=== PATIENT | female | born 1990 | race Caucasian/White ===

== ENCOUNTER 2016-12-27 20:34 | Outpatient (CLI) | payer BC, MEDICAID ==
[2016-12-27 21:36] VITALS: BP 122/69
--- NOTE | 2016-12-27 21:56 | ER Document Report ---
ED Medical Screen (RME) - General Stated Complaint: LEFT SIDE BACK PAIN Mode of Arrival: Ambulatory Information source: Patient Notes: Patient complains of left lateral side lower quadrant abdominal pain. Patient states she is currently 25 weeks . Patient is . Patient states she has gestational diabetes. Patient denies urinary symptoms. Pt denies any vag bleeding or discharge. hx: Kidney stones without formal diagnosis of kidney stone TRAVEL OUTSIDE OF THE [place] IN LAST 30 DAYS: No - Related Data Allergies/Adverse Reactions: Penicillins Allergy (Verified 08/20/16 11:15) Generalized Itching Past Medical History - Past Medical History Cardiac Medical History: Denies: Hx Coronary Artery Disease, Hx Heart Attack, Hx Hypertension Pulmonary Medical History: Denies: Hx Asthma, Hx Bronchitis, Hx COPD, Hx Pneumonia Neurological Medical History: Denies: Hx Cerebrovascular Accident, Hx Seizures Endocrine Medical History: Reports: Hx Diabetes Mellitus Type 2 - gestational. Denies: Hx Hyperthyroidism, Hx Hypothyroidism Renal/ Medical History: Reports: Hx Kidney Stones. Denies: Hx Ovarian Cysts, Hx Pelvic Inflammatory Disease Malignancy Medical History: Denies: Hx Breast Cancer, Hx Cervical Cancer, Hx Ovarian Cancer GI Medical History: Denies: Hx Gastroesophageal Reflux Disease, Hx Hepatitis, Hx Hiatal Hernia, Hx Ulcer Musculoskeltal Medical History: Denies Hx Arthritis Traumatic Medical History: Reports: Hx Fractures - Fx Tailbone 12/25 Infectious Medical History: Denies: Hx Hepatitis, Hx HIV Past Surgical History: Reports: Hx Section, Hx Gynecologic Surgery - lap for endometriosis/ d&c, Hx Orthopedic Surgery - bilateral knee surgery, right shoulder x2. Denies: Hx Mastectomy, Hx Open Heart Surgery, Hx Pacemaker - Immunizations Immunizations up to date: Yes Hx Diphtheria, Pertussis, Tetanus Vaccination: Yes - 10/14/13 Physical Exam - Vital signs Vitals: Temp Pulse Resp BP 97.8 F 113 H 22 H 122/69 12/27/16 21:34 12/27/16 21:34 12/27/16 21:34 12/27/16 21:34 - Abdominal Tenderness: Tender - left lower quadrant and the left lateral side Course - Re-evaluation Re-evalutation: 12/27/16 21:59 Patient is currently 25 weeks and will be converted to a labor check, patient is agreeable with this plan of care. - Vital Signs Vital signs: Temp Pulse Resp BP Pulse Ox 97.8 F 113 H 22 H 122/69 12/27/16 21:34 12/27/16 21:34 12/27/16 21:34 12/27/16 21:34
--- NOTE | 2016-12-27 22:17 | Non Stress Test Report ---
Non Stress Test Datetime Report Generated by CPN: 12/27/2016 22:16 DEMOGRAPHIC EGA NST: 38.5 EGA NST: 38.4 EGA NST: 32.0 INDICATION Indication for Study: Ordered by Provider; Other Indication for Study: Other Indication for Study: Ordered by Provider Indication for Study (NST) Other: labor check Indication for Study (NST) Other: Labor Check Indication for Study (NST) Other: Labor Check MONITORING Monitor Explained: Monitor Explained; Test Explained; Patient Verbalized Understanding Monitor Explained: Monitor Explained; Test Explained; Patient Verbalized Understanding Monitor Explained: Monitor Explained; Test Explained; Patient Verbalized Understanding Time on Monitor: 04/04/2016 03:24 Time on Monitor: 04/03/2016 07:45 Time on Monitor: 02/17/2016 11:50 Time off Monitor: 04/04/2016 04:32 Time off Monitor: 04/03/2016 08:30 Time off Monitor: 02/17/2016 12:44 NST Duration: 68 NST Duration: 45 NST Duration: 54 NST INTERVENTIONS NST Interventions: PO Hydration NST Interventions: None NST Interventions: PO Hydration Physician Notified NST: Dr Pizarro Physician Notified NST: Dr. Pizarro Physician Notified NST: Dr. Ron MACIAS A: [id number] BABY A Movement : Present Movement : Present Movement : Present Contraction Frequency : irregular Contraction Frequency : Irregular Contraction Frequency : 0 FHR Baseline : 140 FHR Baseline : 145 FHR Baseline : 135 Accelerations : 15X15 Accelerations : 15X15 Accelerations : 15X15 Decelerations : None Decelerations : None Decelerations : None Variability : Moderate 6-25bpm Variability : Moderate 6-25bpm Variability : Moderate 6-25bpm NST Review: Meets Criteria for Reactive NST NST Review: Meets Criteria for Reactive NST NST Review: Meets Criteria for Reactive NST NST Review and Verified By : Yumiko Martinez RN NST Review and Verified By : Ricardo Allen RN NST Results: Reactive NST Results: Reactive NST Results: Reactive NST REPORT Report Trigger: Send Report Report Trigger: Send Report
[2016-12-27 22:39] LABS: APPEARANCE,URINE SLIGHTLY-CLOUDY; BILIRUBIN,URINE NEGATIVE (NEGATIVE); GLUCOSE, URINE NEGATIVE (NEGATIVE); KETONES,URINE NEGATIVE (NEGATIVE); LEUKOCYTE ESTERASE,URINE TRACE (NEGATIVE); NITRITE,URINE NEGATIVE (NEGATIVE); PROTEIN,URINE NEGATIVE (NEGATIVE); URINE SPECIFIC GRAVITY 1.017; UROBILINOGEN,URINE NEGATIVE mg/dL (<2.0)
[2016-12-27 22:52] LABS: URINE BARBITURATES SCREEN NEGATIVE; URINE METHADONE SCREEN NEGATIVE; URINE PHENCYCLIDINE SCREEN NEGATIVE
[2016-12-27 22:59] LABS: URINE OPIATES LOW UNCONFIRMED POSITIVE
[2016-12-27] MEDS ORDERED: IBUPROFEN 800 MG TABLET ONE (23:02)
[2016-12-27] MEDS ORDERED: PROMETHAZINE HCL 25 MG TABLET ONE (23:02)
--- NOTE | 2016-12-27 23:15 | L&D Progress Notes ---
PROGRESS NOTES Datetime Report Generated by CPN: 12/27/2016 23:15 PROGRESS NOTE Impression Other: llq pain like kidney stones in past Comment: no cva tenderness. Pt denies fevers, chills, constipation. Abd Gravid. Suspected kidney stone-phenergan 25 mg and motrin 800 mg po now. Script for vicodin 5/325 1-2 po qid prn #30 rfo. Push fluids and f/u if sxs persist or worsen. FETUS A FHR Comments: appropriate for gestational age SIGNATURE SIGNATURE: [id number] SIGNATURE: [id number] Signature: with User ID: [email or web address]
[2016-12-27] MEDS ORDERED: HYDROCODONE/ACETAMINOPHEN 5-325 MG TABLET PO ONE (23:16)
[2016-12-27] MEDS ORDERED: IBUPROFEN 800 MG TABLET PO ONE (23:16)
[2016-12-27] MEDS ORDERED: HYDROCODONE/ACETAMINOPHEN 5-325 MG TABLET ONE (23:16)
[2016-12-27] MEDS ORDERED: PROMETHAZINE HCL 25 MG TABLET PO ONE (23:16)
== END 2016-12-27 23:17 | disposition home or self-care (01) ==
LOC: EDSTATUS 22:02 → LC 22:04
PROVIDERS: ATTEND Specialist
PROC: 4A1HXCZ Monitoring of Products of Conception, Cardiac Rate, External Approach (ICD-10-PCS; principal; 2016-12-27)
DX: O26.893 Other specified pregnancy related conditions, third trimester (principal); R10.32 Left lower quadrant pain; Z87.442 Personal history of urinary calculi; Z3A.38 38 weeks gestation of pregnancy
CPT/HCPCS: 59025; 81001; 80307; J3490 ×2

== ENCOUNTER 2017-01-11 09:52 | Emergency (ER) | payer MEDICAID ==
[2017-01-11] MEDS ORDERED: NORMAL SALINE 1000 ML 1,000 ML IV ONE (10:22)
--- NOTE | 2017-01-11 10:30 | ER Document Report ---
ED General - General Chief Complaint: Flank Pain Stated Complaint: FLANK PAIN Mode of Arrival: Ambulatory Information source: Patient Notes: This is a 26-year-old female at 27 weeks gestation who presents with 3 week history of left flank pain. She states that she has a history of kidney stones and that this feels the same. She has been treated with Flomax and hydrocodone by her OB physician yet she ran out a few days ago. This morning the pain persisted so she presented to the emergency department. Of note she has OB follow-up scheduled for tomorrow and urology appointment scheduled for January 21. She denies fevers, chills or systemic symptoms. She does endorse mild dysuria. She is tolerating by mouth without difficulty. TRAVEL OUTSIDE OF THE [place] IN LAST 30 DAYS: No - Related Data Allergies/Adverse Reactions: Penicillins Allergy (Verified 01/11/17 09:55) Generalized Itching Past Medical History - General Information source: Patient, [facility] Records - Social History Smoking Status: Unknown if Ever Smoked Chew tobacco use (# tins/day): No Frequency of alcohol use: None Drug Abuse: None Family History: Reviewed & Not Pertinent Patient has suicidal ideation: No Patient has homicidal ideation: No - Past Medical History Cardiac Medical History: Denies: Hx Coronary Artery Disease, Hx Heart Attack, Hx Hypertension Pulmonary Medical History: Denies: Hx Asthma, Hx Bronchitis, Hx COPD, Hx Pneumonia Neurological Medical History: Denies: Hx Cerebrovascular Accident, Hx Seizures Endocrine Medical History: Reports: Hx Diabetes Mellitus Type 2 - gestational. Denies: Hx Hyperthyroidism, Hx Hypothyroidism Renal/ Medical History: Reports: Hx Kidney Stones. Denies: Hx Ovarian Cysts, Hx Peritoneal Dialysis, Hx Pelvic Inflammatory Disease Malignancy Medical History: Denies: Hx Breast Cancer, Hx Cervical Cancer, Hx Ovarian Cancer GI Medical History: Denies: Hx Gastroesophageal Reflux Disease, Hx Hepatitis, Hx Hiatal Hernia, Hx Ulcer Musculoskeltal Medical History: Denies Hx Arthritis Traumatic Medical History: Reports: Hx Fractures - Fx Tailbone 12/25 Infectious Medical History: Denies: Hx Hepatitis, Hx HIV Past Surgical History: Reports: Hx Section, Hx Gynecologic Surgery - lap for endometriosis/ d&c, Hx Orthopedic Surgery - bilateral knee surgery, right shoulder x2. Denies: Hx Mastectomy, Hx Open Heart Surgery, Hx Pacemaker - Immunizations Immunizations up to date: Yes Hx Diphtheria, Pertussis, Tetanus Vaccination: Yes - 10/14/13 Review of Systems - Review of Systems Notes: REVIEW OF SYSTEMS: CONSTITUTIONAL : Denies fever, chills, or sweats. Denies recent illness. EENT: Denies eye, ear, throat, or mouth pain or symptoms. Denies nasal or sinus congestion. CARDIOVASCULAR: Denies chest pain. RESPIRATORY: Denies cough, cold, or chest congestion. Denies shortness of breath, difficulty breathing, or wheezing. GASTROINTESTINAL: Denies abdominal pain, contractions. Denies nausea, vomiting , or diarrhea. GENITOURINARY: As per history of present illness. Denies difficulty urinating , burning, frequency, or blood in urine. FEMALE GENITOURINARY: Denies vaginal bleeding MUSCULOSKELETAL: Denies neck or back pain or joint pain or swelling. SKIN: Denies rash or skin lesions. HEMATOLOGIC : Denies easy bruising or bleeding. LYMPHATIC: Denies swollen, enlarged glands. NEUROLOGICAL: Denies altered mental status or loss of consciousness. Denies headache. PSYCHIATRIC: Denies anxiety or stress or depression. ALL OTHER SYSTEMS REVIEWED AND NEGATIVE. Physical Exam - Vital signs Vitals: Temp Pulse Resp BP Pulse Ox 98.1 F 112 H 18 134/62 H 99 01/11/17 09:56 01/11/17 09:56 01/11/17 09:56 01/11/17 09:56 01/11/17 09:56 heart tones 145 - Notes Notes: PHYSICAL EXAMINATION: GENERAL: Well-appearing, well-nourished and in no acute distress. Pleasant and conversant HEAD: Atraumatic, normocephalic. EYES: Pupils equal round and reactive to light, extraocular movements intact, sclera anicteric, conjunctiva are normal. ENT: nares patent, oropharynx clear without exudates. Moist mucous membranes. NECK: Normal range of motion, supple without lymphadenopathy LUNGS: Breath sounds clear to auscultation bilaterally and equal. No wheezes rales or rhonchi. HEART: Regular rate and rhythm without murmurs ABDOMEN: Soft, gravid, nontender, normoactive bowel sounds. No guarding, no rebound. No masses appreciated. EXTREMITIES: Normal range of motion, no pitting or edema. No cyanosis. NEUROLOGICAL: Cranial nerves grossly intact. Normal speech. No gross focal motor or sensory deficits appreciated. PSYCH: Normal mood, normal affect. SKIN: Warm, Dry, normal turgor, no rashes or lesions noted. Course - Re-evaluation Re-evalutation: 01/11/17 11:58 Patient resting comfortably in the ER with no complaints of pain at this time. Her labs and ultrasound are reviewed. Labs are very reassuring with normal kidney function and electrolytes. Renal ultrasound demonstrates no evidence of hydronephrosis. Her urinalysis is somewhat of a contaminated sample however with moderate leukocyte Estrace and the patient state stating that she does have mild discomfort with urination will treat with Macrobid. Patient has plans to follow up with her [facility] provider this week. We discussed strict return precautions to include fevers, persistent vomiting, vaginal bleeding or other concerns. She and her family are comfortable with the plan. - Vital Signs Vital signs: Temp Pulse Resp BP Pulse Ox 98.1 F 112 H 18 134/62 H 99 01/11/17 09:56 01/11/17 09:56 01/11/17 09:56 01/11/17 09:56 01/11/17 09:56 - Laboratory Result Diagrams: 01/11/17 10:40 01/11/17 10:40 Laboratory results interpreted by me: 01/11/17 01/11/17 01/11/17 10:40 10:40 10:40 Hgb 10.6 L Hct 31.2 L BUN 6 L Albumin 3.3 L Urine Protein 30 H Urine Blood SMALL H Ur Leukocyte Esterase MODERATE H - Diagnostic Test Radiology reviewed: Image reviewed, Reports reviewed - no hydronephrosis Discharge - Discharge Clinical Impression: Renal colic on left side, Third trimester UTI (urinary tract infection) Qualifiers: Urinary tract infection type: site unspecified Hematuria presence: without hematuria Qualified Code(s): N39.0 - Urinary tract infection, site not specified Condition: Stable Disposition: HOME, SELF-CARE Additional Instructions: URINARY TRACT INFECTION: Your evaluation indicates that you have a urinary tract infection. This is due to germs growing in the bladder. This is a common problem. This infection usually responds quickly to antibiotics. Your antibiotic should be taken exactly as prescribed. Drink plenty of fluids -- three to four quarts a day. Occasionally, a bladder anesthetic will be prescribed to help stop the feeling of urgency until the antibiotic has a chance to clear the infection. This may cause your urine to be dark orange. Certain urine infections require a culture. If the doctor obtained a culture, the results will be back in two days. You should call to see if a change in treatment is needed. A repeat urinalysis after you finish treatment is often recommended. The physician will let you know if further testing is required. Call the doctor if you develop fever, chills, flank pain, inability to urinate, or blood in the urine. ANTIBIOTIC THERAPY: You have been given an antibiotic prescription. It's important that you take all the medication, unless instructed otherwise by your physician. Failure to complete the entire course can result in relapse of your condition. Common side effects of antibiotics include nausea, intestinal cramping, or diarrhea. Women may develop vaginal yeast infections, and babies can get yeast (thrush) in the mouth following the use of antibiotics. Contact your physician if you develop significant side effects from this medication. Allergy to this antibiotic can result in hives, wheezing, faintness, or itching. If symptoms of allergy occur, stop the medication and call the doctor. . NITROFURANTOIN (MACRODANTIN, MACROBID): You have received a prescription for nitrofurantoin (Macrodantin). This antibiotic is used for urinary tract infections. If you have ever had a problem caused by this medication in the past, be sure the physician is aware of it. Common side effects of this medicine include nausea, vomiting, or decreased appetite. Notify your physician if these side effects become severe. Immediately stop this medicine and call the physician if you develop cough , shortness of breath, chest pain, weakness, jaundice (yellow color of the skin and whites of the eyes), or a skin rash. FOLLOW-UP CARE: If you have been referred to a physician for follow-up care, call the physician s office for an appointment as you were instructed or within the next two days. If you experience worsening or a significant change in your symptoms, notify the physician immediately or return to the Emergency Department at any time for re-evaluation. Continue Tylenol as needed as instructed for pain. Follow up with OB as instructed on Thursday, and keep follow up with urology on 01/21 as scheduled. Return to the ER for fever >100.4, vaginal bleeding, persistant vomiting, or any worsening symptoms or concerns. Prescriptions: Nitrofurantoin/Nitrofuran Mac [Macrobid 100 mg Capsule] 1 tab PO BID #20 capsule Referrals: MAVIS CASTRO MD [Primary Care Provider] - Follow up as needed
[2017-01-11 11:05] LABS: ABSOLUTE EOSINOPHILS # (AUTO) 0.1 10^3/uL (0.0-0.6); ABSOLUTE LYMPHOCYTES (AUTO) 1.6 10^3/uL (0.5-4.7); ABSOLUTE MONOCYTES (AUTO) 0.4 10^3/uL (0.1-1.4); ABSOLUTE NEUT (AUTO) 6.2 10^3/uL (1.7-8.2); BASOPHILS % (AUTO) 0.3 % (0-2); EOSINOPHILS % (AUTO) 0.7 % (0-6); HEMATOCRIT 31.2 % (36.0-47.0); HEMOGLOBIN 10.6 g/dL (12.0-15.5); HGB HCT DIFFERENCE 0.6; LYMPHOCYTES % (AUTO) 19.5 % (13-45); MEAN CORPUSCULAR HEMOGLOBIN 28.2 pg (27.0-33.4); MEAN CORPUSCULAR HGB CONC 34.1 g/dL (32.0-36.0); MEAN CORPUSCULAR VOLUME 83 fl (80-97); RED BLOOD COUNT 3.78 10^6/uL (3.72-5.28); RED CELL DISTRIBUTION WIDTH 13.8 % (11.5-14.0); SEGMENTED NEUTROPHILS % (AUTO) 74.5 % (42-78); WHITE BLOOD COUNT 8.4 10^3/uL (4.0-10.5)
[2017-01-11 11:25] LABS: APPEARANCE,URINE CLOUDY; BILIRUBIN,URINE NEGATIVE (NEGATIVE); GLUCOSE, URINE NEGATIVE (NEGATIVE); KETONES,URINE NEGATIVE (NEGATIVE); LEUKOCYTE ESTERASE,URINE MODERATE (NEGATIVE); NITRITE,URINE NEGATIVE (NEGATIVE); PROTEIN,URINE 30 mg/dL (NEGATIVE); URINE SPECIFIC GRAVITY 1.023; UROBILINOGEN,URINE NEGATIVE mg/dL (<2.0)
[2017-01-11 11:26] LABS: ALANINE AMINOTRANSFERASE 18 U/L (9-52); ALBUMIN 3.3 g/dL (3.5-5.0); ALKALINE PHOSPHATASE 101 U/L (38-126); ANION GAP 10 (5-19); ASPARTATE AMINO TRANSFERASE 15 U/L (14-36); BILIRUBIN,TOTAL 0.3 mg/dL (0.2-1.3); BLOOD UREA NITROGEN 6 mg/dL (7-20); CALCIUM 9.1 mg/dL (8.4-10.2); CARBON DIOXIDE 22 mmol/L (22-30); CHLORIDE 107 mmol/L (98-107); CREATININE RESULT 0.59 mg/dL (0.52-1.25); GLUCOSE 104 mg/dL (75-110); POTASSIUM 3.9 mmol/L (3.6-5.0); TOTAL PROTEIN 6.3 g/dL (6.3-8.2)
[2017-01-11 12:14] VITALS: BP 118/65
== END 2017-01-11 12:16 | disposition home or self-care (01) ==
LOC: ER 09:52
DX: O23.43 Unspecified infection of urinary tract in pregnancy, third trimester (principal); N23 Unspecified renal colic; R10.9 Unspecified abdominal pain; Z3A.27 27 weeks gestation of pregnancy; Z79.899 Other long term (current) drug therapy
CPT/HCPCS: 99284; 36415; 85025; 80053; 81001; 76770; J7030

== ENCOUNTER 2017-02-18 14:45 | Outpatient (CLI) | payer MEDICAID ==
[2017-02-18 15:56] LABS: APPEARANCE,URINE SLIGHTLY-CLOUDY; BILIRUBIN,URINE NEGATIVE (NEGATIVE); GLUCOSE, URINE NEGATIVE (NEGATIVE); KETONES,URINE NEGATIVE (NEGATIVE); LEUKOCYTE ESTERASE,URINE TRACE (NEGATIVE); NITRITE,URINE NEGATIVE (NEGATIVE); PROTEIN,URINE NEGATIVE (NEGATIVE); URINE SPECIFIC GRAVITY 1.014; UROBILINOGEN,URINE NEGATIVE mg/dL (<2.0)
[2017-02-18 16:09] LABS: URINE BARBITURATES SCREEN NEGATIVE; URINE METHADONE SCREEN NEGATIVE; URINE PHENCYCLIDINE SCREEN NEGATIVE
[2017-02-18 16:14] LABS: URINE OPIATES LOW UNCONFIRMED POSITIVE
--- NOTE | 2017-02-18 16:50 | Non Stress Test Report ---
Non Stress Test Datetime Report Generated by CPN: 02/18/2017 16:49 DEMOGRAPHIC EGA NST: 32.2 INDICATION Indication for Study: Other Indication for Study (NST) Other: sent from office for IV fluids MONITORING Monitor Explained: Monitor Explained; Test Explained; Patient Verbalized Understanding Time on Monitor: 02/18/2017 15:13 Time off Monitor: 02/18/2017 15:39 NST Duration: 26 NST INTERVENTIONS NST Interventions: IV Fluids Physician Notified NST: A. Emmel, CNM BABY A: [id number] BABY A Movement : Present Movement : Present Contraction Frequency : none FHR Baseline : 125 Accelerations : 15X15 Decelerations : None Variability : Moderate 6-25bpm NST Review: Meets Criteria for Reactive NST NST Review and Verified By : Napoleon Dominguez [facility] NST Results: Reactive NST Results: Reactive NST REPORT Report Trigger: Send Report
--- NOTE | 2017-02-18 18:53 | L&D Discharge Summary ---
OB Discharge Summary Datetime Report Generated by CPN: 02/18/2017 18:53 DISCHARGE DIAGNOSIS Diagnosis/Symptoms: Other Diagnoses/Symptoms Other: IUP at 32.2, not in labor Gestation: 32.1 Number of Babies in Womb: 1 Parity: 2 DIET/ACTIVITY/RESTRICTIONS Diet: Regular Diet Restrictions: Instructed to advance as tolerated Activity: Normal Activity TEACHING/INSTRUCTIONS/REFERRALS Instructions Given To: patient Instructions Understood: Patient Verbalized Understanding Referrals: None Educational Materials- Other: kick counts, dehydration DISCHARGE INFORMATION Discharged AMA: No Discharge Date/Time: 02/18/2017 16:44 Discharged To: Home Discharge Provider Name: Di PetersJACQUI Accompanied By: self Discharge Method: Ambulatory Condition: Stable FOLLOW UP INFORMATION Follow Up With: [facility] Follow Up On: As Scheduled Follow Up Phone Number: [facility] - Comments: Patient instructed to return for ctx every 5 min lasting 60 seconds, decreased movement, ruptur eof membranes, heavy vaginal bleeding GENERAL INSTR-CALL PROVIDER IF: Contractions: Contractions or cramps become more frequent than 8 in one hour or 4 in 20 minutes; Regular painful contractions every 5 minutes or less for one hour. Time your contractions from the beginning of one to the beginning of the next Pressure: Pressure in your vagina or lower abdomen that may feel like the baby is pushing down Period Like Cramps: Period-like cramps or low dull backache that may come and go Cramps/Diarrhea: Abdominal cramps that may be accompanied by diarrhea Gush of Fluid/Blood: Gush of fluid or blood from your vagina (it is normal to have spotting after vaginal exam or intercourse) Vaginal Discharge: Change in the type or amount of vaginal discharge Decreased Movement: Your baby is not moving as much as usual- 4 movements in 1 hour after drinking and resting on side Temperature: Temperature greater than 100.0(F) orally
--- NOTE | 2017-02-18 22:46 | L&D Discharge Summary ---
OB Discharge Summary Datetime Report Generated by CPN: 02/18/2017 22:45 DISCHARGE DIAGNOSIS Diagnosis/Symptoms: Other Diagnoses/Symptoms Other: IUP at 32.2, not in labor Gestation: 32.2 Number of Babies in Womb: 1 Parity: 2 DIET/ACTIVITY/RESTRICTIONS Diet: Regular Diet Restrictions: Instructed to advance as tolerated Activity: Normal Activity TEACHING/INSTRUCTIONS/REFERRALS Instructions Given To: patient Instructions Understood: Patient Verbalized Understanding Referrals: None Educational Materials- Other: kick counts, dehydration DISCHARGE INFORMATION Discharged AMA: No Discharge Date/Time: 02/18/2017 16:44 Discharged To: Home Discharge Provider Name: Di PetersJAQCUI Accompanied By: self Discharge Method: Ambulatory Condition: Stable FOLLOW UP INFORMATION Follow Up With: [facility] Follow Up On: As Scheduled Follow Up Phone Number: [facility] - Comments: Patient instructed to return for ctx every 5 min lasting 60 seconds, decreased movement, ruptur eof membranes, heavy vaginal bleeding GENERAL INSTR-CALL PROVIDER IF: Contractions: Contractions or cramps become more frequent than 8 in one hour or 4 in 20 minutes; Regular painful contractions every 5 minutes or less for one hour. Time your contractions from the beginning of one to the beginning of the next Pressure: Pressure in your vagina or lower abdomen that may feel like the baby is pushing down Period Like Cramps: Period-like cramps or low dull backache that may come and go Cramps/Diarrhea: Abdominal cramps that may be accompanied by diarrhea Gush of Fluid/Blood: Gush of fluid or blood from your vagina (it is normal to have spotting after vaginal exam or intercourse) Vaginal Discharge: Change in the type or amount of vaginal discharge Decreased Movement: Your baby is not moving as much as usual- 4 movements in 1 hour after drinking and resting on side Temperature: Temperature greater than 100.0(F) orally
--- NOTE | 2017-02-18 22:46 | L&D Flow Sheet ---
LD Flowsheet Datetime Report Generated by CPN: 02/18/2017 22:45 Datetime: 02/18/2017 16:35 Communication Comments: kick counts and dehydration care notes given to patient, patient verbalized understanding. Patient instructed to keep appointment at office on the 20 th (Elizabeth Russo RN) Communication Comments: monitors removed for patient discharge (Elizabeth Russo, RN) Datetime: 02/18/2017 16:34 Patient Care Comments: IV discontinued (Elizabeth Russo, RN) Datetime: 02/18/2017 16:32 Communication Communication: Provider at Bedside (Elizabeth Karan, RN) Communication Comments: A. Emmel, CNM at bedside discussing POC, order received to discharge patient home (Elizabeth Karan, RN) Datetime: 02/18/2017 16:24 Vital Signs NBP Sys/Sarba/Mean (mmHg): 107 (QS system process) : 59 (QS system process) : 76 (QS system process) Pulse: 89 (QS system process) LaborFlag: Labor (QS system process) Datetime: 02/18/2017 16:09 Vital Signs NBP Sys/Sabra/Mean (mmHg): 105 (QS system process) : 58 (QS system process) : 78 (QS system process) Pulse: 96 (QS system process) LaborFlag: Labor (QS system process) Datetime: 02/18/2017 15:54 Vital Signs NBP Sys/Sabra/Mean (mmHg): 109 (QS system process) : 57 (QS system process) : 79 (QS system process) Pulse: 96 (QS system process) LaborFlag: Labor (QS system process) Datetime: 02/18/2017 15:39 Vital Signs NBP Sys/Sabra/Mean (mmHg): 110 (QS system process) : 56 (QS system process) : 76 (QS system process) Pulse: 92 (QS system process) LaborFlag: Labor (QS system process) Datetime: 02/18/2017 15:38 Communication Comments: strip reviewed by A. Emmel, CNM. Order receieved to discontinue heart rate monitor (Elizabeth Karan, RN) Datetime: 02/18/2017 15:30 Uterine Activity Monitor Mode: External; Palpation (Elizabeth Karan, RN) Frequency (min): none (Elizabeth Karan, RN) Resting Tone (Palpate): Relaxed (Elizabeth Karan, RN) Assessment A Monitor Mode: External US (Elizabeth Karan, RN) FHR Baseline Rate : 140 (Elizabeth Karan, RN) FHR Baseline Changes: No Baseline Change (Elizabeth Karan, RN) Variability: Moderate 6-25 bpm (Elizabeth Karan, RN) Accelerations: 15X15 (Elizabeth Karan, RN) Decelerations: None (Elizabeth Karan, RN) Datetime: 02/18/2017 15:25 Resting Tone (Palpate): Relaxed (Elizabeth Karan, RN) Assessment A Monitor Mode: External US (Elizabeth Karan, RN) Pain Pain Scale: 1 (Elizabeth Russo, RN) Pain Presence: None/Denies (Elizabeth Russo, RN) Pain Type: N/A (Elizabeth Russo, RN) Pain Goal: 0 (Elizabeth Russo, RN) Pain Relief Measures: Comfort Measures (Elizabeth Russo, RN) Vaginal Exam Membrane Status: Intact (Annotations: intact per patient) (Elizabeth Russo, RN) Vaginal Bleeding: None (Elizabeth Russo, RN) Maternal Assessment Level of Consciousness: Fully Conscious (Elizabeth Russo, ELLEN) DTR's/Clonus: DTRs 2+; No Clonus (Elizabeth Russo, ELLEN) Headache: Denies (Elizabeth Russo, RN) Breath Sounds, Left: Clear and Equal (Elizabeth Russo, RN) Breath Sounds, Right: Clear and Equal (Elizabeth Russo, RN) Nausea/Vomiting: Denies (Elizabeth Russo, ELLEN) RUQ Epigastric Pain: Denies (Elizabeth Russo, RN) Patient Care IV/Blood Work: IV Infusing per Order (Elizabeth Russo, ELLEN) Oxygen Method: Room Air (Elizabeth Russo RN) Patient Position/Activity: Left Tilt; Semi-Fowlers (Elizabeth Russo RN) Provider Reviewed Strip: Yes (Elizabeth Russo RN) Teaching Instructional Method: Verbal (Elizabeth Russo, RN) Plan of Care: Plan of Care Discussed (Elizabeth Karan, RN) Unit Routine: [place] to Room; Call [place]; Bed (Elizabeth Karan, RN) LaborFlag: Labor (QS system process) Datetime: 02/18/2017 15:23 Vital Signs NBP Sys/Sabra/Mean (mmHg): 116 (QS system process) : 60 (QS system process) : 81 (QS system process) Pulse: 93 (QS system process) Patient Care IV/Blood Work: IV Started; IV Bolus Started (Elizabeth Karan, RN) LaborFlag: Labor (QS system process) Datetime: 12/27/2016 22:42 LaborFlag: Labor (QS system process) Datetime: 12/27/2016 22:41 Temperature (C): 36.9 (QS system process) LaborFlag: Labor (QS system process) Datetime: 12/27/2016 22:32 LaborFlag: Labor (QS system process) Datetime: 02/25/2016 11:43 Temperature (C): 36.6 (QS system process)
--- NOTE | 2017-02-18 22:46 | L&D General Admission ---
General Admit Datetime Report Generated by CPN: 02/18/2017 22:45 INFORMATION Patient Age: 24 (09/20/2014 12:44:QS system process) EDC: 04/13/2017 00:00 (12/24/2015 16:17:Katrina Briggs RN) : 6 (12/24/2015 16:17:Katrina Briggs RN) Para: 2 (12/24/2015 16:17:Katrina Briggs RN) Term: 2 (12/24/2015 16:17:Katrina Briggs RN) : 0 (12/24/2015 16:17:Sugey Henderson RN ) Spontaneous Abortions: 3 (12/24/2015 16:17:Sugey Henderson RN ) Induced Abortions: 0 (12/24/2015 16:17:Sugey Henderson RN ) Livin (12/24/2015 16:17:Katrina Briggs RN) Cesareans: 1 (12/24/2015 16:17:Sugey Henderson RN ) VBACs: 0 (12/24/2015 16:17:Sugey Henderson RN ) Ectopic: 0 (12/24/2015 16:17:Sugey Henderson RN ) Multiple Births: 0 (12/24/2015 16:17:Sugey Henderson RN ) Baby, Number in Womb: 1 (12/27/2016 23:17:Katrina Briggs RN) Baby, Number in Womb: 1 (12/24/2015 16:17:Sugey Henderson RN ) CARE Primary Net Development Manager: [facility] (12/24/2015 16:17:Jerilyn Arevalo RN) Adequate Care: Yes (12/24/2015 16:17:Sugey Henderson RN ) Height (in): 67 (02/18/2017 15:35:QS system process) Height (in): 67 (02/18/2017 15:34:QS system process) Height (in): 67 (12/27/2016 22:45:QS system process) Height (in): 67 (12/27/2016 22:12:QS system process) Height (in): 67 (12/27/2016 22:11:QS system process) Height (in): 67 (12/27/2016 22:05:QS system process) Height (in): 67 (04/10/2016 10:10:QS system process) Height (in): 67 (04/09/2016 11:09:QS system process) Height (in): 67 (04/08/2016 05:35:QS system process) Height (in): 67 (04/08/2016 05:02:QS system process) Height (in): 67 (04/04/2016 03:26:QS system process) Height (in): 67 (04/03/2016 07:14:QS system process) Height (in): 67 (02/25/2016 11:19:QS system process) Height (in): 67 (12/24/2015 16:23:QS system process) Height (in): 67 (12/24/2015 15:59:QS system process) Height (in): 67 (12/24/2015 15:58:QS system process) Height (in): 67 (07/18/2015 19:11:QS system process) Height (in): 67 (01/26/2015 14:13:QS system process) Height (in): 67 (09/27/2014 22:43:QS system process) Height (in): 67 (09/27/2014 22:12:QS system process) Height (in): 67 (09/20/2014 12:44:QS system process) ALLERGIES Medication Allergy: Yes (12/24/2015 16:17:Sugey Henderson RN ) Medication Allergies: Penicillins/Generalized Itc (02/18/2017) (02/18/2017 15:34:QS system process) Medication Allergies: Penicillins/Generalized Itc (01/11/2017) (02/18/2017 14:46:QS system process) Medication Allergies: Penicillins/Generalized Itc (12/27/2016) (12/27/2016 22:45:QS system process) Medication Allergies: Penicillins/Generalized Itc (08/20/2016) (12/27/2016 22:05:QS system process) Medication Allergies: Penicillins/Generalized Itc (04/04/2016) (04/08/2016 05:02:QS system process) Medication Allergies: Penicillins/Generalized Itc (04/04/2016); codeine/Generalized Itc (04/04/2016) (04/04/2016 03:22:QS system process) Medication Allergies: Penicillins/Generalized Itc (02/25/2016); Codeine/Generalized Itc (02/25/2016) (02/25/2016 11:19:QS system process) Medication Allergies: Penicillins/Generalized Itc (02/21/2016); Codeine/Generalized Itc (02/21/2016) (02/25/2016 11:05:QS system process) Medication Allergies: Penicillins/Generalized Itc (12/24/2015); Codeine/Generalized Itc (12/24/2015) (12/24/2015 15:58:QS system process) Medication Allergies: Penicillins/Generalized Itc (01/02/2014); Codeine/Generalized Itc (01/02/2014) (09/20/2014 12:44:QS system process) Latex Allergy: No Latex Allergies (12/24/2015 16:17:Sugey Henderson RN ) COMMUNICATION Primary Language: Citizen [place] (12/24/2015 16:17:Sugey Henderson RN ) Medical Tx Preferred Language: Citizen [place] (12/24/2015 16:17:Yara Uribe RN) Citizen [place] Communication Ability: Speaks Citizen [place]; Reads Citizen [place] (12/24/2015 16:17:Elizabeth Munoz RN) Communication Barrier(s): None (12/24/2015 16:17:Yara Uribe RN) DEMOGRAPHICS Address: [address] [place] [phone] (09/20/2014 12:44:QS system process) Zipcode: [phone] (09/20/2014 12:44:QS system process) Home (09/20/2014 12:44:QS system process) Work (12/27/2016 22:05:QS system process) SSN: [id number] (09/20/2014 12:44:QS system process) Next of Kin Name: YORDAN AGUAYO (09/20/2014 12:44:QS system process) Next of Kin (09/20/2014 12:44:QS system process) Next of Kin Relationship: SPO (09/20/2014 12:44:QS system process) Date of : 1990 (09/20/2014 12:44:QS system process) Marital Status: (09/20/2014 12:44:QS system process) Sex: Female (09/20/2014 12:44:QS system process) Race: (09/20/2014 12:44:QS system process) Ethnicity: Non- or (09/20/2014 12:44:QS system process) Taoism: None (09/20/2014 12:44:QS system process) DRUG AND ALCOHOL USE Alcohol: No (12/24/2015 16:17:Sugey Henderson RN ) Cigarettes: Former Smoker. [id number] (12/24/2015 16:17:Sugye Henderson RN ) Marijuana: No (12/24/2015 16:17:Sugey Henderson RN ) Cocaine: No (12/24/2015 16:17:Sugey Henderson RN ) Other Illicit Drugs: No (12/24/2015 16:17:Sugey Henderson RN ) VACCINE HISTORY Influenza Vaccine: Yes (12/24/2015 16:17:Sugey Henderson RN ) Influenza Date: 2015 (12/24/2015 16:17:Katrina Briggs RN) Pneumococcal Vaccine: No (12/24/2015 16:17:Sugey Henderson RN ) Tetanus Vaccine: Yes (12/24/2015 16:17:Sugey Henderson RN ) Tdap Vaccine: Yes (12/24/2015 16:17:Sugey Henderson RN ) Hepatitis B Vaccine: Yes (12/24/2015 16:17:Sugey Henderson RN ) Mixing Place Supervisor: [facility] (12/24/2015 16:17:Katrina Briggs RN) Feeding Preference: Formula (12/24/2015 16:17:Katrina Briggs RN) Benefit of Breast Feed Discussed: Yes (12/24/2015 16:17:Elizabeth Munoz RN) Circumcision: N/A (12/24/2015 16:17:Katrina Briggs RN) Classes Attended: No (12/24/2015 16:17:Katrina Briggs RN) Tubal Ligation: Yes (12/24/2015 16:17:Katrina Briggs RN) Tubal Authorization Signed: No (12/24/2015 16:17:Katrina Briggs RN) Consent: N/A (12/24/2015 16:17:Katrina Briggs RN) Consent Signed: No (12/24/2015 16:17:Katrina Briggs RN) Pain Management Plans: Spinal (12/24/2015 16:17:Elizabeth Munoz RN) Other Pain Management Plans: scheduled c/s (12/24/2015 16:17:Elizabeth Munoz RN) Plans for Labor and Delivery: None (12/24/2015 16:17:Elizabeth Munoz RN) Support Person: Yordan (12/24/2015 16:17:Katrina Briggs RN) Support Person Relationship: (12/24/2015 16:17:Katrina Briggs RN) Cultural/Spritual Practice: No (12/24/2015 16:17:Katrina Briggs RN) Spir/Cult Dietary Needs: No (12/24/2015 16:17:Katrina Briggs RN) LIVING SITUATION/DISCHARGE PLAN Living Arrangements: House (12/24/2015 16:17:Sugey Henderson RN ) Adequate Access to:: Electric; Heat; Refrigeration; Plumbing/Running water; Phone; Transportation (12/24/2015 16:17:Sugey Henderson RN ) WIC Program: Yes (12/24/2015 16:17:Katrina Briggs RN) Discharge Manager Telemetry Person: family Yordan (12/24/2015 16:17:Sugey Henderson RN ) Person to Help after Discharge: family Yordan (12/24/2015 16:17:Sugey Henderson RN ) Currently Using Commun Resources: Yes (12/24/2015 16:17:Sugey Henderson RN ) Specify Current Resource Used: Medicaid (12/24/2015 16:17:Sugey Henderson RN ) Outside Agency/Supervisor [employer] Department: No (12/24/2015 16:17:Sugey Henderson RN ) Car Seat for Discharge: Yes (12/24/2015 16:17:Sugey Henderson RN ) Adoption Requested: No (12/24/2015 16:17:Sugey Henderson RN ) Pt Contact w/infant Post : N/A (12/24/2015 16:17:Sugey Henderson RN ) LABS Blood Type: A Positive (12/24/2015 16:17:Sugey Henderson RN ) Hemoglobin: 10.6 L (01/11/2017 10:40:QS system process) Hemoglobin: 12.6 (08/20/2016 12:32:QS system process) Hemoglobin: 12.5 (04/23/2016 12:05:QS system process) Hemoglobin: 8.9 L (04/09/2016 06:56:QS system process) Hemoglobin: 10.1 L (04/04/2016 11:35:QS system process) Hemoglobin: 10.3 L (02/21/2016 11:15:QS system process) Hemoglobin: 11.7 L (09/04/2015 21:15:QS system process) Hemoglobin: 13.1 (09/27/2014 21:30:QS system process) Hematocrit: 31.2 L (01/11/2017 10:40:QS system process) Hematocrit: 36.5 (08/20/2016 12:32:QS system process) Hematocrit: 39.6 (04/23/2016 12:05:QS system process) Hematocrit: 27.0 L (04/09/2016 06:56:QS system process) Hematocrit: 31.0 L (04/04/2016 11:35:QS system process) Hematocrit: 30.8 L (02/21/2016 11:15:QS system process) Hematocrit: 35.5 L (09/04/2015 21:15:QS system process) Hematocrit: 39.2 (09/27/2014 21:30:QS system process) MCV: 83 (01/11/2017 10:40:QS system process) MCV: 83 (08/20/2016 12:32:QS system process) MCV: 84 (04/23/2016 12:05:QS system process) MCV: 85 (04/09/2016 06:56:QS system process) MCV: 85 (04/04/2016 11:35:QS system process) MCV: 84 (02/21/2016 11:15:QS system process) MCV: 86 (09/04/2015 21:15:QS system process) MCV: 85 (09/27/2014 21:30:QS system process) Gonorrhea: Negative (12/24/2015 16:17:Sugey Henderson RN ) Chlamydia: Negative (12/24/2015 16:17:Sugey Henderson RN ) RPR/VDRL: Nonreactive (12/24/2015 16:17:Sugey Henderson RN ) HIV Exposure Test: Negative (12/24/2015 16:17:Sugey Henderson RN ) Hepatitis B: Negative (12/24/2015 16:17:Sugey Henderson RN ) Rubella: Immune (12/24/2015 16:17:Sugey Henderson RN ) Varicella: Susceptible (12/24/2015 16:17:Sugey Henderson RN ) OB/PREVIOUS HISTORY Previous Procedures: Ultrasound; NST (12/24/2015 16:17:Katrina Briggs RN) Current Procedures: Ultrasound (12/24/2015 16:17:Katrina Briggs RN) History of Previous : No (12/24/2015 16:17:Sugey Henderson RN ) History of Gestational Diabetes: No (12/24/2015 16:17:Sugey Henderson RN ) History of PIH: No (12/24/2015 16:17:Sugey Henderson RN ) History of Incompetent Cervix: No (12/24/2015 16:17:Sugey Henderson RN ) History of Placenta Previa/Abrup: No (12/24/2015 16:17:Sugey Henderson RN ) History of Macrosomia: No (12/24/2015 16:17:Sugey Henderson RN ) History of IUGR: No (12/24/2015 16:17:Sugey Henderson RN ) History of Hemorrhage: No (12/24/2015 16:17:Sugey Henderson RN ) History of Loss/Stillborn: No (12/24/2015 16:17:Sugey Henderson RN ) History of : No (12/24/2015 16:17:Sugey Henderson RN ) History of D (Rh) Sensitization: No (12/24/2015 16:17:Sugey Henderson RN ) History Recurrent Loss/Stillborn: No (12/24/2015 16:17:Sugey Henderson RN ) History Depression/PP Depression: No (12/24/2015 16:17:Sugey Henderson RN ) History of Uterine Anomaly/NAHOMI: No (12/24/2015 16:17:Sugey Henderson RN ) History of Infertility: No (12/24/2015 16:17:Sugey Henderson RN ) History of ART Treatment: Yes (12/24/2015 16:17:Sugey Henderson RN ) History of NAHOMI: No (12/24/2015 16:17:Sugey Henderson RN ) Comments Obstetrical History: G1:MAB with D_C at 10 weeks G2: SAB @ 6 WEEKS G3: SAB @ 6 WEEKS G4: 10/12/13 @ 39 WEEKS, C/S-SGA, FEMALE 5.10 LBS, DISTRESS AT [facility] G5: delivered at 39.1 weeks gestation via csection, female 7lb 10 oz g6: Current , close spaced, GDM diet controlled (12/24/2015 16:17:Katrina Briggs RN) MEDICAL HISTORY Med Hx Diabetes: Yes (12/24/2015 16:17:Jerilyn Arevalo RN) Diabetes Type: Gestational Diabetes (12/24/2015 16:17:Katrina Briggs RN) Med Hx Hypertension: No (12/24/2015 16:17:Sugey Henderson RN ) Med Hx Heart Disease: No (12/24/2015 16:17:Sugey Henderson RN ) Med Hx Autoimmune Disorder: No (12/24/2015 16:17:Sugey Henderson RN ) Med Hx Kidney Disease/UTI: Yes (12/24/2015 16:17:Sugey Henderson RN ) Med Hx Neurologic/Epilepsy: No (12/24/2015 16:17:Sugey Henderson RN ) Med Hx Psychiatric Disorders: No (12/24/2015 16:17:Sugey Henderson RN ) Med Hx Hepatitis/Liver Disease: No (12/24/2015 16:17:Sugey Henderson RN ) Med Hx Varicosities/Phlebitis: No (12/24/2015 16:17:Sugey Henderson RN ) Med Hx Thyroid Dysfunction: No (12/24/2015 16:17:Sugey Henderson RN ) Med Hx Trauma/Violence: No (12/24/2015 16:17:Sugey Henderson RN ) Med Hx Blood Transfusion: No (12/24/2015 16:17:Sugey Henderson RN ) Med Hx Pulmonary (Asthma,TB): No (12/24/2015 16:17:Sugey Henderson RN ) Med Hx Breast: No (12/24/2015 16:17:Sugey Henderson RN ) Med Hx BOARD MIXER TENDER Surgery: No (12/24/2015 16:17:Sugey Henderson RN ) Med Hx Hospitalization/Surgery: Yes (12/24/2015 16:17:Sugye Henderson RN ) Med Hx Anesthetic Complications: No (12/24/2015 16:17:Sugey Henderson RN ) Med Hx Abnormal Pap Smear: No (12/24/2015 16:17:Sugey Henderson RN ) Other Medical Diseases: No (12/24/2015 16:17:Sugey Henderson RN ) Med Hx Significant Family Hx: No (12/24/2015 16:17:Sugey Henderson RN ) Details of Med/Surg Hx: RIGHT SHOULDER SURGERY 2013, 2014 LAPROSCOPIC SURGERY FOR ENDOMETRIOSIS 2011 D_C X1, C/S X1 CHLOMID, 2 IVF TREATMENTS (12/24/2015 16:17:Sugey Henderson RN ) INFECTIOUS HISTORY Inf Hx Gonorrhea: No (12/24/2015 16:17:Sugey Henderson RN ) Inf Hx Chlamydia: No (12/24/2015 16:17:Sugey Henderson RN ) Inf Hx Syphilis: No (12/24/2015 16:17:Sugey Henderson RN ) Inf Hx HIV/AIDS: No (12/24/2015 16:17:Sugey Henderson RN ) Inf Hx Human Papilloma Virus: No (12/24/2015 16:17:Sugey Henderson RN ) Inf Hx Pt/Partner Genital Herpes: No (12/24/2015 16:17:Sugey Henderson RN ) Inf Hx Tuberculosis/Exposure: No (12/24/2015 16:17:Sugey Henderson RN ) Inf Hx Hepatitis B,C: No (12/24/2015 16:17:Sugey Henderson RN ) Inf Hx Rash or Viral Illness: No (12/24/2015 16:17:Sugey Henderson RN ) GENETIC HISTORY Gen Hx Age >=35 at [facility]: No (12/24/2015 16:17:Sugey Henderson RN ) Gen Hx Thalassemia: No (12/24/2015 16:17:Sugey Henderson RN ) Gen Hx Congenital Heart Defect: No (12/24/2015 16:17:Sugey Henderson RN ) Gen Hx Neural Tube Defect: No (12/24/2015 16:17:Sugey Henderson RN ) Gen Hx Down's Syndrome: No (12/24/2015 16:17:Sugey Henderson RN ) Gen Hx Elmer-Sachs: No (12/24/2015 16:17:Sugey Henderson RN ) Gen Hx Manuel: No (12/24/2015 16:17:Sugey Henderson RN ) Gen Hx Familial Dysautonomia: No (12/24/2015 16:17:Sugey Henderson RN ) Gen Hx Sickle Cell Disease/Trait: No (12/24/2015 16:17:Sugey Henderson RN ) Gen Hx Hemophilia/Blood Disorder: No (12/24/2015 16:17:Sugey Henderson RN ) Gen Hx Muscular Dystrophy: No (12/24/2015 16:17:Sugey Henderson RN ) Gen Hx Cystic Fibrosis: No (12/24/2015 16:17:Sugey Henderson RN ) Gen Hx Huntingtons Chorea: No (12/24/2015 16:17:Sugey Henderson RN ) Gen Hx Mental Retardation/Autism: No (12/24/2015 16:17:Sugey Henderson RN ) Gen Hx Tested for Fragile X: No (12/24/2015 16:17:Sugey Henderson RN ) Gen Hx Other Inher/Chromosomal: No (12/24/2015 16:17:Sugey Henderson RN ) Gen Hx Maternal Metabolic DO: No (12/24/2015 16:17:Sugey Henderson RN ) Gen Hx Pt Father or FOB Defect: No (12/24/2015 16:17:Sugey Henderson RN ) Gen Hx Other Genetic History: No (12/24/2015 16:17:Sugey Henderson RN ) Gen Hx Drugs/Meds since LMP: No (12/24/2015 16:17:Sugey Henderson RN )
--- NOTE | 2017-02-18 22:46 | L&D Current Admission ---
Current Admit Datetime Report Generated by CPN: 02/18/2017 22:45 ADMISSION INFORMATION Chief Complaint: Other (Annotations: dehydration) (02/18/2017 15:25:Elizabeth Russo RN) Chief Complaint: lower left abdominal pain that started earlier this morning and has been consistently stronger and more painful since 1700. Patient states it feels like when she has had kidney stones in the past. Irregular contractions. (12/27/2016 22:32:Katrina Briggs RN) Chief Complaint: Contractions (04/04/2016 03:37:Elizabeth Munoz RN) Chief Complaint: Contractions (04/03/2016 07:31:Jerilyn Arevalo RN) Chief Complaint: Nausea; Vomiting (02/25/2016 11:43:Jerilyn Arevalo RN) Chief Complaint: upper belly pain (02/17/2016 11:52:Yaar Uribe RN)
--- NOTE | 2017-02-18 22:46 | Antepartum Discharge Summary ---
Antepartum DC Datetime Report Generated by CPN: 02/18/2017 22:45 DIET/ACTIVITY/RESTRICTIONS Diet: Regular (02/18/2017 16:45:Elizabeth Russo RN) Activity: Normal Activity (02/18/2017 16:45:Elizabeth Russo RN) TEACHING/INSTRUCTIONS/REFERRALS Instructions Given To: patient (02/18/2017 16:45:Elizabeth Russo RN) Instructions Understood: Patient Verbalized Understanding (02/18/2017 16:45:Elizabeth Karan, RN) Referrals: None (02/18/2017 16:45:Elizabeth Russo RN) Educational Materials- Other: kick counts, dehydration (02/18/2017 16:45:Elizabeth Russo RN) DISCHARGE INFORMATION Discharged AMA: No (02/18/2017 16:45:Elizabeth Russo RN) Discharge Date/Time: 02/18/2017 16:44 (02/18/2017 16:45:Elizabeth Russo RN) Discharged To: Home (02/18/2017 16:45:Elizabeth Russo RN) Discharge Provider Name: Di Peters CNM (02/18/2017 16:45:Elizabeth Russo RN) Accompanied By: self (02/18/2017 16:45:Elizabeth Russo RN) Discharge Method: Ambulatory (02/18/2017 16:45:Elizabeth Russo RN) Condition: Stable (02/18/2017 16:45:Elizabeth Russo RN) FOLLOW UP INFORMATION Follow Up With: [facility] (02/18/2017 16:45:Elizabeth Russo RN) Follow Up On: As Scheduled (02/18/2017 16:45:Elizabeth Russo RN) Follow Up Phone Number: [facility] - (02/18/2017 16:45:Elizabeth Russo RN) GENERAL INSTR-CALL PROVIDER IF: Contractions: Contractions or cramps become more frequent than 8 in one hour or 4 in 20 minutes; Regular painful contractions every 5 minutes or less for one hour. Time your contractions from the beginning of one to the beginning of the next (02/18/2017 16:45:Elizabeth Russo RN) Pressure: Pressure in your vagina or lower abdomen that may feel like the baby is pushing down (02/18/2017 16:45:Elizabeth Russo RN) Period Like Cramps: Period-like cramps or low dull backache that may come and go (02/18/2017 16:45:Elizabeth Russo RN) Cramps/Diarrhea: Abdominal cramps that may be accompanied by diarrhea (02/18/2017 16:45:Elizabeth Russo RN) Gush of Fluid/Blood: Gush of fluid or blood from your vagina (it is normal to have spotting after vaginal exam or intercourse) (02/18/2017 16:45:Elizabeth Russo RN) Vaginal Discharge: Change in the type or amount of vaginal discharge (02/18/2017 16:45:Elizabeth Russo RN) Decreased Movement: Your baby is not moving as much as usual- 4 movements in 1 hour after drinking and resting on side (02/18/2017 16:45:Elizabeth Russo RN) Temperature: Temperature greater than 100.0(F) orally (02/18/2017 16:45:Elizabeth Russo RN) Hypertension Signs/Symptoms: Severe headache which is not relieved 30 minutes after taking Tylenol(Acetaminophen); Blurry vision or spots before your eyes; Severe heartburn or pain on the upper right side of your abdomen that is not relieved by an antacid; Increased swelling in your face, hands or feet (02/18/2017 16:45:Elizabeth Russo RN) Urinary Output: Decreased urinary output or dark colored urine (02/18/2017 16:45:Elizabeth Russo RN)
--- NOTE | 2017-02-19 04:46 | L&D Discharge Summary ---
OB Discharge Summary Datetime Report Generated by CPN: 02/19/2017 04:45 DISCHARGE DIAGNOSIS Diagnosis/Symptoms: Other Diagnoses/Symptoms Other: IUP at 32.2, not in labor Gestation: 32.2 Number of Babies in Womb: 1 Parity: 2 DIET/ACTIVITY/RESTRICTIONS Diet: Regular Diet Restrictions: Instructed to advance as tolerated Activity: Normal Activity TEACHING/INSTRUCTIONS/REFERRALS Instructions Given To: patient Instructions Understood: Patient Verbalized Understanding Referrals: None Educational Materials- Other: kick counts, dehydration DISCHARGE INFORMATION Discharged AMA: No Discharge Date/Time: 02/18/2017 16:44 Discharged To: Home Discharge Provider Name: Di PetersJACQUI Accompanied By: self Discharge Method: Ambulatory Condition: Stable FOLLOW UP INFORMATION Follow Up With: [facility] Follow Up On: As Scheduled Follow Up Phone Number: [facility] - Comments: Patient instructed to return for ctx every 5 min lasting 60 seconds, decreased movement, ruptur eof membranes, heavy vaginal bleeding GENERAL INSTR-CALL PROVIDER IF: Contractions: Contractions or cramps become more frequent than 8 in one hour or 4 in 20 minutes; Regular painful contractions every 5 minutes or less for one hour. Time your contractions from the beginning of one to the beginning of the next Pressure: Pressure in your vagina or lower abdomen that may feel like the baby is pushing down Period Like Cramps: Period-like cramps or low dull backache that may come and go Cramps/Diarrhea: Abdominal cramps that may be accompanied by diarrhea Gush of Fluid/Blood: Gush of fluid or blood from your vagina (it is normal to have spotting after vaginal exam or intercourse) Vaginal Discharge: Change in the type or amount of vaginal discharge Decreased Movement: Your baby is not moving as much as usual- 4 movements in 1 hour after drinking and resting on side Temperature: Temperature greater than 100.0(F) orally
--- NOTE | 2017-02-19 04:46 | L&D Current Admission ---
Current Admit Datetime Report Generated by CPN: 02/19/2017 04:45 ADMISSION INFORMATION Chief Complaint: Other (Annotations: dehydration) (02/18/2017 15:25:Elizbaeth Russo RN) Chief Complaint: lower left abdominal pain that started earlier this morning and has been consistently stronger and more painful since 1700. Patient states it feels like when she has had kidney stones in the past. Irregular contractions. (12/27/2016 22:32:Katrina Briggs RN)
--- NOTE | 2017-02-19 04:46 | L&D Admission Assessment ---
LD ADM ASMT Datetime Report Generated by CPN: 02/19/2017 04:45 PATIENT ASSESSMENT Assessment Type: Admission Assessment (02/18/2017 15:25:Elizabeth Russo RN) WEIGHT Weight (lb): 235 (02/18/2017 15:35:QS system process) Weight (lb): 235 (02/18/2017 15:34:QS system process) Weight (kg): 106.8 (02/18/2017 15:35:QS system process) Weight (kg): 106.8 (02/18/2017 15:34:QS system process) BMI: 36.8 (02/18/2017 15:35:QS system process) BMI: 36.8 (02/18/2017 15:34:QS system process) PAIN Pain Scale: 1 (02/18/2017 15:25:Elizabeth Russo RN) Pain Presence: None/Denies (02/18/2017 15:25:Elizabeth Russo RN) Pain Type: N/A (02/18/2017 15:25:Elizabeth Russo RN) Pain Goal: 0 (02/18/2017 15:25:Elizabeth Russo RN) CONTRACTIONS Frequency (min): none (02/18/2017 15:30:Elizabeth Russo RN) Resting Tone [place]: Relaxed (02/18/2017 15:30:Elizabeth Russo RN) Resting Tone [place]: Relaxed (02/18/2017 15:25:Elizabeth Russo RN) VAGINAL EXAM Membranes Status: Intact (Annotations: intact per patient) (02/18/2017 15:25:Elizabeth Russo RN) NEURO Level of Consciousness: Fully Conscious (02/18/2017 15:25:Elizabeth Russo RN) DTR's/Clonus: DTRs 2+; No Clonus (02/18/2017 15:25:Elizabeth Russo RN) Headache: Denies (02/18/2017 15:25:Elizabeth Russo RN) Dizziness: No (02/18/2017 15:25:Elizabeth Russo RN) Blurred Vision: No (02/18/2017 15:25:Elizabeth Russo RN) Extremity Numbness/Tingling : None (02/18/2017 15:25:Elizabeth Russo RN) Extremity Movement: Full Range of Motion (02/18/2017 15:25:Elizabeth Russo RN) CARDIOVASCULAR Heart Rhythm: Regular (02/18/2017 15:25:Elizabeth Russo RN) Nailbeds: [place] (02/18/2017 15:25:Elizabeth Russo RN) Capillary Refill: Less than 3 Seconds (02/18/2017 15:25:Elizabeth Russo RN) Lower Extremities Edema: None (02/18/2017 15:25:Elizabeth Russo RN) Lower Extremities Edema Degree: None (02/18/2017 15:25:Elizabeth Russo RN) Upper Extremities Edema: None (02/18/2017 15:25:Elizabeth Russo RN) Upper Extremities Edema Degree: None (02/18/2017 15:25:Elizabeth Russo RN) Facial Edema: None (02/18/2017 15:25:Elizabeth Russo RN) Robert's Sign Left Leg: Negative (02/18/2017 15:25:Elizabeth Russo RN) Robert's Sign Right Leg: Negative (02/18/2017 15:25:Elizabeth Russo RN) DVT RISK ASSESSMENT DVT Risk Age: Age less than 41 years (02/18/2017 15:25:Elizabeth Russo RN) DVT Risk BMI: BMI<31 (02/18/2017 15:25:Elizabeth Russo RN) DVT Risk Surgery: History of Prior Major Surgery (02/18/2017 15:25:Elizabeth Russo RN) DVT Risk Other: Women Only- or (<1 month) (02/18/2017 15:25:Elizabeth Russo RN) DVT Risk Total: 2 (02/18/2017 15:25:QS system process) DVT Risk Text: Moderate Risk (10-20%) - Consider stockings, compresssion device, pharmacological therapy per hospital policy (02/18/2017 15:25:QS system process) RESPIRATORY Respiratory Effort: Unlabored; Regular Rhythm; Equal Expansion (02/18/2017 15:25:Elizabeth Russo RN) Breath Sounds, Left: Clear and Equal (02/18/2017 15:25:Elizabeth Russo RN) Breath Sounds, Right: Clear and Equal (02/18/2017 15:25:Elizabeth Russo RN) Cough Productivity: None (02/18/2017 15:25:Elizabeth Russo RN) GASTROINTESTINAL Nausea/Vomiting: Denies (02/18/2017 15:25:Elizabeth Russo RN) Bowel Sounds: Normoactive (02/18/2017 15:25:Elizabeth Russo RN) RUQ Epigastric Pain: Denies (02/18/2017 15:25:Elizabeth Russo RN) Bowel Patterns: Soft, Formed Stool (02/18/2017 15:25:Elizabeth Russo RN) Hemorrhoids: None (02/18/2017 15:25:Elizabeth Russo RN) Diet Type: Regular diet (02/18/2017 15:25:Elizabeth Russo RN) Last Meal: 02/18/2017 12:00 (02/18/2017 15:25:Elizabeth Russo RN) GENITOURINARY Bladder: Nondistended (02/18/2017 15:25:Elizabeth Russo RN) Frequency of Urination: No (02/18/2017 15:25:Elizabeth Russo RN) Urination Burning: No (02/18/2017 15:25:Elizabeth Russo RN) CVA Tenderness: No (02/18/2017 15:25:Elizabeth Russo RN) Vaginal Bleeding: None (02/18/2017 15:25:Elizabeth Russo RN) Vaginal Discharge Amount: None (02/18/2017 15:25:Elizabeth Russo RN) Vaginal Discharge Color: N/A (02/18/2017 15:25:Elizabeth Russo RN) Vaginal Discharge Character: None (02/18/2017 15:25:Elizabeth Russo RN) INTEGUMENTARY Skin Color: Normal for Race (02/18/2017 15:25:Elizabeth Russo RN) Skin Temperature: Warm (02/18/2017 15:25:Elizabeth Russo RN) Skin Moisture: Dry (02/18/2017 15:25:Elizabeth Russo RN) DEON SKIN ASSESSMENT [place] Scale Sensory Perception: No Impairment- Responds to verbal commands. Has no sensory deficit which would limit ability to feel or voice pain or discomfort (02/18/2017 15:25:Elizabeth Russo RN) Deon Scale Moisture: Rarely Moist- Skin is usually dry. Linen only requires changing at routine intervals (02/18/2017 15:25:Elizabeth Russo RN) Deon Scale Activity: Walks Frequently- Walks outside the room at least twice a day and inside room at least every 2 hours during the day. (02/18/2017 15:25:Elizabeth Russo RN) Deon Scale Mobility: No Limitations- Makes major and frequent changes in position without assistance (02/18/2017 15:25:Elizabeth Russo RN) Deon Scale Nutrition: Excellent- Eats most of every meal. Never refuses a meal. Usually eats a total of 4 or more servings of meat and dairy products. Occasionally eats between meals. Does not require supplementation (02/18/2017 15:25:Elizabeth Russo RN) Deon Scale Friction and Shear: No Apparent Problem- Moves in bed and in chair independently and has sufficient muscle strength to lift up completely during move. Maintains good position in bed or chair at all times (02/18/2017 15:25:Elizabeth Russo RN) Deon Scale Total: 23 (02/18/2017 15:25:QS system process) Deon Scale Risk: No Risk of Pressure Ulcer Noted at this Time (02/18/2017 15:25:QS system process) SUPPORT Family Support: Significant Other supportive, at bedside frequently (02/18/2017 15:25:Elizabeth Russo RN) Emotional State: Calm/Relaxed (02/18/2017 15:25:Elizabeth Russo RN) SAFETY Call [place] Within Reach: Yes (02/18/2017 15:25:Elizabeth Russo RN) Side Rails Up: Yes (02/18/2017 15:25:Elizabeth Russo RN) Bed Wheels Locked: Yes (02/18/2017 15:25:Elizabeth Russo RN) Arm Bands Present: Yes (02/18/2017 15:25:Elizabeth Russo RN) Isolation: [place] (02/18/2017 15:25:Elizabeth Russo RN) FALL SCREEN Fall Risk History of Falling: (0) No (02/18/2017 15:25:Elizabeth Russo RN) Fall Risk Secondary Diagnosis: (0) No (02/18/2017 15:25:Elizabeth Russo RN) Fall Risk Ambulatory Aid: (0) None/Bedrest/Wheelchair/Nurse Assist (02/18/2017 15:25:Elizabeth Russo RN) Fall Risk IV Therapy: (0) No (02/18/2017 15:25:Elizabeth Russo RN) Fall Risk Gait: (0) Normal/Bedrest/Immobile (02/18/2017 15:25:Elizabeth Russo RN) Fall Risk Mental Status: (0) Oriented to Own Ability (02/18/2017 15:25:Elizabeth Russo RN) Fall Risk Score: 0 (02/18/2017 15:25:QS system process) Fall Risk Score Definition: No Risk: No action required (02/18/2017 15:25:QS system process) RECENT TRAVEL/INFECTIOUS DISEASE Recent Exp Communicable Disease: No (02/18/2017 15:25:Elizabeth Russo RN) Cough or Fever: No (02/18/2017 15:25:Elizabeth Russo RN) Foreign Travel Past 10 Days: No (02/18/2017 15:25:Elizabeth Russo RN) Open Wounds or Sores: No (02/18/2017 15:25:Elizabeth Russo RN) Prior Antibiotic Resistance Tx: No (02/18/2017 15:25:Elizabeth Russo RN) Cultures Obtained: Not Applicable (02/18/2017 15:25:Elizabeth Russo RN) Isolation Initiated: No (02/18/2017 15:25:Elizabeth Russo RN) Pt/Family Education: Handwashing Hygiene (02/18/2017 15:25:Elizabeth Russo RN) BABY A FHR Baseline Rate (bpm) Baby A: 140 (02/18/2017 15:30:Elizabeth Russo RN) Variability Baby A: Moderate 6-25 bpm (02/18/2017 15:30:Elizabeth Russo RN) Accelerations Baby A: 15X15 (02/18/2017 15:30:Elizabeth Russo RN) Decelerations Baby A: None (02/18/2017 15:30:Elizabeth Russo RN) ADDITIONAL COMMENTS Assessment Flag: Admission Assessment (02/18/2017 15:25:QS system process)
--- NOTE | 2017-02-19 04:46 | L&D General Admission ---
General Admit Datetime Report Generated by CPN: 02/19/2017 04:45 INFORMATION Baby, Number in Womb: 1 (12/27/2016 23:17:Katrina Briggs, RN) CARE Height (in): 67 (02/18/2017 15:35:QS system process) Height (in): 67 (02/18/2017 15:34:QS system process) Height (in): (12/27/2016 22:45:QS system process) Height (in): 67 (12/27/2016 22:12:QS system process) Height (in): 67 (12/27/2016 22:11:QS system process) Height (in): 67 (12/27/2016 22:05:QS system process) Height (in): 67 (04/10/2016 10:10:QS system process) Height (in): 67 (04/09/2016 11:09:QS system process) Height (in): 67 (04/08/2016 05:35:QS system process) Height (in): 67 (04/08/2016 05:02:QS system process) ALLERGIES Medication Allergies: Penicillins/Generalized Itc (02/18/2017) (02/18/2017 15:34:QS system process) Medication Allergies: Penicillins/Generalized Itc (01/11/2017) (02/18/2017 14:46:QS system process) Medication Allergies: Penicillins/Generalized Itc (12/27/2016) (12/27/2016 22:45:QS system process) Medication Allergies: Penicillins/Generalized Itc (08/20/2016) (12/27/2016 22:05:QS system process) Medication Allergies: Penicillins/Generalized Itc (04/04/2016) (04/08/2016 05:02:QS system process) DEMOGRAPHICS Work (12/27/2016 22:05:QS system process) LABS Hemoglobin: 10.6 L (01/11/2017 10:40:QS system process) Hemoglobin: 12.6 (08/20/2016 12:32:QS system process) Hemoglobin: 12.5 (04/23/2016 12:05:QS system process) Hemoglobin: 8.9 L (04/09/2016 06:56:QS system process) Hemoglobin: 10.1 L (04/04/2016 11:35:QS system process) Hematocrit: 31.2 L (01/11/2017 10:40:QS system process) Hematocrit: 36.5 (08/20/2016 12:32:QS system process) Hematocrit: 39.6 (04/23/2016 12:05:QS system process) Hematocrit: 27.0 L (04/09/2016 06:56:QS system process) Hematocrit: 31.0 L (04/04/2016 11:35:QS system process) MCV: 83 (01/11/2017 10:40:QS system process) MCV: 83 (08/20/2016 12:32:QS system process) MCV: 84 (04/23/2016 12:05:QS system process) MCV: 85 (04/09/2016 06:56:QS system process) MCV: 85 (04/04/2016 11:35:QS system process)
--- NOTE | 2017-02-19 04:46 | Antepartum Discharge Summary ---
Antepartum DC Datetime Report Generated by CPN: 02/19/2017 04:45 DIET/ACTIVITY/RESTRICTIONS Diet: Regular (02/18/2017 16:45:Elizabeth Russo RN) Activity: Normal Activity (02/18/2017 16:45:Elizabeth Russo RN) TEACHING/INSTRUCTIONS/REFERRALS Instructions Given To: patient (02/18/2017 16:45:Elizabeth Russo RN) Instructions Understood: Patient Verbalized Understanding (02/18/2017 16:45:Elizabeth Karan, RN) Referrals: None (02/18/2017 16:45:Elizabeth Russo RN) Educational Materials- Other: kick counts, dehydration (02/18/2017 16:45:Elizabeth Russo RN) DISCHARGE INFORMATION Discharged AMA: No (02/18/2017 16:45:Elizabeth Russo RN) Discharge Date/Time: 02/18/2017 16:44 (02/18/2017 16:45:Elizabeth Russo RN) Discharged To: Home (02/18/2017 16:45:Elizabeth Russo RN) Discharge Provider Name: iD Peters CNM (02/18/2017 16:45:Elizabeth Russo RN) Accompanied By: self (02/18/2017 16:45:Elizabeth Russo RN) Discharge Method: Ambulatory (02/18/2017 16:45:Elizabeth Russo RN) Condition: Stable (02/18/2017 16:45:Elizabeth Russo RN) FOLLOW UP INFORMATION Follow Up With: [facility] (02/18/2017 16:45:Elizabeth Russo RN) Follow Up On: As Scheduled (02/18/2017 16:45:Elizabeth Russo RN) Follow Up Phone Number: [facility] - (02/18/2017 16:45:Elizabeth Russo RN) GENERAL INSTR-CALL PROVIDER IF: Contractions: Contractions or cramps become more frequent than 8 in one hour or 4 in 20 minutes; Regular painful contractions every 5 minutes or less for one hour. Time your contractions from the beginning of one to the beginning of the next (02/18/2017 16:45:Elizabeth Russo RN) Pressure: Pressure in your vagina or lower abdomen that may feel like the baby is pushing down (02/18/2017 16:45:Elizabeth Russo RN) Period Like Cramps: Period-like cramps or low dull backache that may come and go (02/18/2017 16:45:Elizabeth Russo RN) Cramps/Diarrhea: Abdominal cramps that may be accompanied by diarrhea (02/18/2017 16:45:Elizabeth Russo RN) Gush of Fluid/Blood: Gush of fluid or blood from your vagina (it is normal to have spotting after vaginal exam or intercourse) (02/18/2017 16:45:Elizabeth Russo RN) Vaginal Discharge: Change in the type or amount of vaginal discharge (02/18/2017 16:45:Elizabeth Russo RN) Decreased Movement: Your baby is not moving as much as usual- 4 movements in 1 hour after drinking and resting on side (02/18/2017 16:45:Elizabeth Russo RN) Temperature: Temperature greater than 100.0(F) orally (02/18/2017 16:45:Elizabeth Russo RN) Hypertension Signs/Symptoms: Severe headache which is not relieved 30 minutes after taking Tylenol(Acetaminophen); Blurry vision or spots before your eyes; Severe heartburn or pain on the upper right side of your abdomen that is not relieved by an antacid; Increased swelling in your face, hands or feet (02/18/2017 16:45:Elizabeth Russo RN) Urinary Output: Decreased urinary output or dark colored urine (02/18/2017 16:45:Elizabeth Russo RN)
--- NOTE | 2017-02-19 10:45 | L&D Current Admission ---
Current Admit Datetime Report Generated by CPN: 02/19/2017 10:45 ADMISSION INFORMATION Chief Complaint: Other (Annotations: dehydration) (02/18/2017 15:25:Elizabeth Russo RN) Chief Complaint: lower left abdominal pain that started earlier this morning and has been consistently stronger and more painful since 1700. Patient states it feels like when she has had kidney stones in the past. Irregular contractions. (12/27/2016 22:32:Katrina Briggs RN) Chief Complaint: Contractions (04/04/2016 03:37:Elizabeth Munoz RN) Chief Complaint: Contractions (04/03/2016 07:31:Jerilyn Arevalo RN) Chief Complaint: Nausea; Vomiting (02/25/2016 11:43:Jerilyn Arevalo RN) Chief Complaint: upper belly pain (02/17/2016 11:52:Yara Uribe RN)
--- NOTE | 2017-02-19 10:45 | L&D General Admission ---
General Admit Datetime Report Generated by CPN: 02/19/2017 10:45 INFORMATION Patient Age: 24 (09/20/2014 12:44:QS system process) EDC: 04/13/2017 00:00 (12/24/2015 16:17:Katrina Briggs RN) : 6 (12/24/2015 16:17:Katrina Briggs RN) Para: 2 (12/24/2015 16:17:Katrina Briggs RN) Term: 2 (12/24/2015 16:17:Katrina Briggs RN) : 0 (12/24/2015 16:17:Sugey Henderson RN ) Spontaneous Abortions: 3 (12/24/2015 16:17:Sugey Henderson RN ) Induced Abortions: 0 (12/24/2015 16:17:Sugey Henderson RN ) Livin (12/24/2015 16:17:Katrina Briggs RN) Cesareans: 1 (12/24/2015 16:17:Sugey Henderson RN ) VBACs: 0 (12/24/2015 16:17:Sugey Henderson RN ) Ectopic: 0 (12/24/2015 16:17:Sugey Henderson RN ) Multiple Births: 0 (12/24/2015 16:17:Sugey Henderson RN ) Baby, Number in Womb: 1 (12/27/2016 23:17:Katrina Briggs RN) Baby, Number in Womb: 1 (12/24/2015 16:17:Sugey Henderson RN ) CARE Primary Repairer Auto Clocks: [facility] (12/24/2015 16:17:Jerilyn Arevalo RN) Adequate Care: Yes (12/24/2015 16:17:Sugey Henderson RN ) Height (in): 67 (02/18/2017 15:35:QS system process) Height (in): 67 (02/18/2017 15:34:QS system process) Height (in): 67 (12/27/2016 22:45:QS system process) Height (in): 67 (12/27/2016 22:12:QS system process) Height (in): 67 (12/27/2016 22:11:QS system process) Height (in): 67 (12/27/2016 22:05:QS system process) Height (in): 67 (04/10/2016 10:10:QS system process) Height (in): 67 (04/09/2016 11:09:QS system process) Height (in): 67 (04/08/2016 05:35:QS system process) Height (in): 67 (04/08/2016 05:02:QS system process) Height (in): 67 (04/04/2016 03:26:QS system process) Height (in): 67 (04/03/2016 07:14:QS system process) Height (in): 67 (02/25/2016 11:19:QS system process) Height (in): 67 (12/24/2015 16:23:QS system process) Height (in): 67 (12/24/2015 15:59:QS system process) Height (in): 67 (12/24/2015 15:58:QS system process) Height (in): 67 (07/18/2015 19:11:QS system process) Height (in): 67 (01/26/2015 14:13:QS system process) Height (in): 67 (09/27/2014 22:43:QS system process) Height (in): 67 (09/27/2014 22:12:QS system process) Height (in): 67 (09/20/2014 12:44:QS system process) ALLERGIES Medication Allergy: Yes (12/24/2015 16:17:Sugey Henderson RN ) Medication Allergies: Penicillins/Generalized Itc (02/18/2017) (02/18/2017 15:34:QS system process) Medication Allergies: Penicillins/Generalized Itc (01/11/2017) (02/18/2017 14:46:QS system process) Medication Allergies: Penicillins/Generalized Itc (12/27/2016) (12/27/2016 22:45:QS system process) Medication Allergies: Penicillins/Generalized Itc (08/20/2016) (12/27/2016 22:05:QS system process) Medication Allergies: Penicillins/Generalized Itc (04/04/2016) (04/08/2016 05:02:QS system process) Medication Allergies: Penicillins/Generalized Itc (04/04/2016); codeine/Generalized Itc (04/04/2016) (04/04/2016 03:22:QS system process) Medication Allergies: Penicillins/Generalized Itc (02/25/2016); Codeine/Generalized Itc (02/25/2016) (02/25/2016 11:19:QS system process) Medication Allergies: Penicillins/Generalized Itc (02/21/2016); Codeine/Generalized Itc (02/21/2016) (02/25/2016 11:05:QS system process) Medication Allergies: Penicillins/Generalized Itc (12/24/2015); Codeine/Generalized Itc (12/24/2015) (12/24/2015 15:58:QS system process) Medication Allergies: Penicillins/Generalized Itc (01/02/2014); Codeine/Generalized Itc (01/02/2014) (09/20/2014 12:44:QS system process) Latex Allergy: No Latex Allergies (12/24/2015 16:17:Sugey Henderson RN ) COMMUNICATION Primary Language: Chadian (12/24/2015 16:17:Sugey Henderson RN ) Medical Tx Preferred Language: Chadian (12/24/2015 16:17:Yara Uribe RN) Chadian Communication Ability: Speaks Chadian; Reads Chadian (12/24/2015 16:17:Elizabeth Munoz RN) Communication Barrier(s): None (12/24/2015 16:17:Yara Uribe RN) DEMOGRAPHICS Address: [address] [place] [id number] (09/20/2014 12:44:QS system process) Zipcode: [id number] (09/20/2014 12:44:QS system process) Home (09/20/2014 12:44:QS system process) Work (12/27/2016 22:05:QS system process) SSN: [id number] (09/20/2014 12:44:QS system process) Next of Kin Name: YORDAN AGUAYO (09/20/2014 12:44:QS system process) Next of Kin (09/20/2014 12:44:QS system process) Next of Kin Relationship: SPO (09/20/2014 12:44:QS system process) Date of : 1990 (09/20/2014 12:44:QS system process) Marital Status: (09/20/2014 12:44:QS system process) Sex: Female (09/20/2014 12:44:QS system process) Race: (09/20/2014 12:44:QS system process) Ethnicity: Non- or (09/20/2014 12:44:QS system process) Mandaen: None (09/20/2014 12:44:QS system process) DRUG AND ALCOHOL USE Alcohol: No (12/24/2015 16:17:Sugey Henderson RN ) Cigarettes: Former Smoker. [id number] (12/24/2015 16:17:Sugey Henderson RN ) Marijuana: No (12/24/2015 16:17:Sugey Henderson RN ) Cocaine: No (12/24/2015 16:17:Sugey Henderson RN ) Other Illicit Drugs: No (12/24/2015 16:17:Sugey Henderson RN ) VACCINE HISTORY Influenza Vaccine: Yes (12/24/2015 16:17:Sugey Henderson RN ) Influenza Date: 2015 (12/24/2015 16:17:Katrina Briggs RN) Pneumococcal Vaccine: No (12/24/2015 16:17:Sugey Henderson RN ) Tetanus Vaccine: Yes (12/24/2015 16:17:Sugey Henderson RN ) Tdap Vaccine: Yes (12/24/2015 16:17:Sugey Henderson RN ) Hepatitis B Vaccine: Yes (12/24/2015 16:17:Sugey Henderson RN ) Health Care Technician: [facility] (12/24/2015 16:17:Katrina Briggs RN) Feeding Preference: Formula (12/24/2015 16:17:Katrina Briggs RN) Benefit of Breast Feed Discussed: Yes (12/24/2015 16:17:Elizabeth Munoz RN) Circumcision: N/A (12/24/2015 16:17:Katrina Briggs RN) Classes Attended: No (12/24/2015 16:17:Katrina Briggs RN) Tubal Ligation: Yes (12/24/2015 16:17:Katrina Briggs RN) Tubal Authorization Signed: No (12/24/2015 16:17:Katrina Briggs RN) Consent: N/A (12/24/2015 16:17:Katrina Briggs RN) Consent Signed: No (12/24/2015 16:17:Katrina Briggs RN) Pain Management Plans: Spinal (12/24/2015 16:17:Elizabeth Munoz RN) Other Pain Management Plans: scheduled c/s (12/24/2015 16:17:Elizabeth Munoz RN) Plans for Labor and Delivery: None (12/24/2015 16:17:Elizabeth Munoz RN) Support Person: Yordan (12/24/2015 16:17:Katrina Briggs RN) Support Person Relationship: (12/24/2015 16:17:Katrina Briggs RN) Cultural/Spritual Practice: No (12/24/2015 16:17:Katrina Briggs RN) Spir/Cult Dietary Needs: No (12/24/2015 16:17:Katrina Briggs RN) LIVING SITUATION/DISCHARGE PLAN Living Arrangements: House (12/24/2015 16:17:Sugey Henderson RN ) Adequate Access to:: Electric; Heat; Refrigeration; Plumbing/Running water; Phone; Transportation (12/24/2015 16:17:Sugey Henderson RN ) WIC Program: Yes (12/24/2015 16:17:Katrina Briggs RN) Discharge Toy Painter Person: family Yordan (12/24/2015 16:17:Sugey Henderson RN ) Person to Help after Discharge: family Yordan (12/24/2015 16:17:Sugey Henderson RN ) Currently Using Commun Resources: Yes (12/24/2015 16:17:Sugey Henderson RN ) Specify Current Resource Used: Medicaid (12/24/2015 16:17:Sugey Henderson RN ) Outside Agency/Rail Switchman: No (12/24/2015 16:17:Sugey Henderson RN ) Car Seat for Discharge: Yes (12/24/2015 16:17:Sugey Henderson RN ) Adoption Requested: No (12/24/2015 16:17:Sugey Henderson RN ) Pt Contact w/infant Post : N/A (12/24/2015 16:17:Sugey Henderson RN ) LABS Blood Type: A Positive (12/24/2015 16:17:Sugey Henderson RN ) Hemoglobin: 10.6 L (01/11/2017 10:40:QS system process) Hemoglobin: 12.6 (08/20/2016 12:32:QS system process) Hemoglobin: 12.5 (04/23/2016 12:05:QS system process) Hemoglobin: 8.9 L (04/09/2016 06:56:QS system process) Hemoglobin: 10.1 L (04/04/2016 11:35:QS system process) Hemoglobin: 10.3 L (02/21/2016 11:15:QS system process) Hemoglobin: 11.7 L (09/04/2015 21:15:QS system process) Hemoglobin: 13.1 (09/27/2014 21:30:QS system process) Hematocrit: 31.2 L (01/11/2017 10:40:QS system process) Hematocrit: 36.5 (08/20/2016 12:32:QS system process) Hematocrit: 39.6 (04/23/2016 12:05:QS system process) Hematocrit: 27.0 L (04/09/2016 06:56:QS system process) Hematocrit: 31.0 L (04/04/2016 11:35:QS system process) Hematocrit: 30.8 L (02/21/2016 11:15:QS system process) Hematocrit: 35.5 L (09/04/2015 21:15:QS system process) Hematocrit: 39.2 (09/27/2014 21:30:QS system process) MCV: 83 (01/11/2017 10:40:QS system process) MCV: 83 (08/20/2016 12:32:QS system process) MCV: 84 (04/23/2016 12:05:QS system process) MCV: 85 (04/09/2016 06:56:QS system process) MCV: 85 (04/04/2016 11:35:QS system process) MCV: 84 (02/21/2016 11:15:QS system process) MCV: 86 (09/04/2015 21:15:QS system process) MCV: 85 (09/27/2014 21:30:QS system process) Gonorrhea: Negative (12/24/2015 16:17:Sugey Henderson RN ) Chlamydia: Negative (12/24/2015 16:17:Sugey Henderson RN ) RPR/VDRL: Nonreactive (12/24/2015 16:17:Sugey Henderson RN ) HIV Exposure Test: Negative (12/24/2015 16:17:Sugey Henderson RN ) Hepatitis B: Negative (12/24/2015 16:17:Sugey Henderson RN ) Rubella: Immune (12/24/2015 16:17:Sugey Henderson RN ) Varicella: Susceptible (12/24/2015 16:17:Sugey Henderson RN ) OB/PREVIOUS HISTORY Previous Procedures: Ultrasound; NST (12/24/2015 16:17:Katrina Briggs RN) Current Procedures: Ultrasound (12/24/2015 16:17:Katrina Briggs RN) History of Previous : No (12/24/2015 16:17:Sugey Henderson RN ) History of Gestational Diabetes: No (12/24/2015 16:17:Sugey Hendersno RN ) History of PIH: No (12/24/2015 16:17:Sugey Henderson RN ) History of Incompetent Cervix: No (12/24/2015 16:17:Sugey Henderson RN ) History of Placenta Previa/Abrup: No (12/24/2015 16:17:Sugey Henderson RN ) History of Macrosomia: No (12/24/2015 16:17:Sugey Henderson RN ) History of IUGR: No (12/24/2015 16:17:Sugey Henderson RN ) History of Hemorrhage: No (12/24/2015 16:17:Sugey Henderson RN ) History of Loss/Stillborn: No (12/24/2015 16:17:Sugey Henderson RN ) History of : No (12/24/2015 16:17:Sugey Henderson RN ) History of D (Rh) Sensitization: No (12/24/2015 16:17:Sugey Henderson RN ) History Recurrent Loss/Stillborn: No (12/24/2015 16:17:Sugey Henderson RN ) History Depression/PP Depression: No (12/24/2015 16:17:Sugey Henderson RN ) History of Uterine Anomaly/NAHOMI: No (12/24/2015 16:17:Sugey Henderson RN ) History of Infertility: No (12/24/2015 16:17:Sugey Henderson RN ) History of ART Treatment: Yes (12/24/2015 16:17:Sugey Henderson RN ) History of NAHOMI: No (12/24/2015 16:17:Sugey Henderson RN ) Comments Obstetrical History: G1:MAB with D_C at 10 weeks G2: SAB @ 6 WEEKS G3: SAB @ 6 WEEKS G4: 10/12/13 @ 39 WEEKS, C/S-SGA, FEMALE 5.10 LBS, DISTRESS AT [facility] G5: delivered at 39.1 weeks gestation via csection, female 7lb 10 oz g6: Current , close spaced, GDM diet controlled (12/24/2015 16:17:Katrina Briggs RN) MEDICAL HISTORY Med Hx Diabetes: Yes (12/24/2015 16:17:Jerilyn Arevalo RN) Diabetes Type: Gestational Diabetes (12/24/2015 16:17:Katrina Briggs RN) Med Hx Hypertension: No (12/24/2015 16:17:Sugey Henderson RN ) Med Hx Heart Disease: No (12/24/2015 16:17:Sugey Henderson RN ) Med Hx Autoimmune Disorder: No (12/24/2015 16:17:Sugey Henderson RN ) Med Hx Kidney Disease/UTI: Yes (12/24/2015 16:17:Sugey Henderson RN ) Med Hx Neurologic/Epilepsy: No (12/24/2015 16:17:Sugey Henderson RN ) Med Hx Psychiatric Disorders: No (12/24/2015 16:17:Sugey Henderson RN ) Med Hx Hepatitis/Liver Disease: No (12/24/2015 16:17:Sugey Henderson RN ) Med Hx Varicosities/Phlebitis: No (12/24/2015 16:17:Sugey Henderson RN ) Med Hx Thyroid Dysfunction: No (12/24/2015 16:17:Sugey Henderson RN ) Med Hx Trauma/Violence: No (12/24/2015 16:17:Sugey Henderson RN ) Med Hx Blood Transfusion: No (12/24/2015 16:17:Sugey Henderson RN ) Med Hx Pulmonary (Asthma,TB): No (12/24/2015 16:17:Sugey Henderson RN ) Med Hx Breast: No (12/24/2015 16:17:Sugey Henderson RN ) Med Hx BAKER SECOND Surgery: No (12/24/2015 16:17:Sugey Henderson RN ) Med Hx Hospitalization/Surgery: Yes (12/24/2015 16:17:Sugey Henderson RN ) Med Hx Anesthetic Complications: No (12/24/2015 16:17:Sugey Henderson RN ) Med Hx Abnormal Pap Smear: No (12/24/2015 16:17:Sugey Henderson RN ) Other Medical Diseases: No (12/24/2015 16:17:Sugey Henderson RN ) Med Hx Significant Family Hx: No (12/24/2015 16:17:Sugey Henderson RN ) Details of Med/Surg Hx: RIGHT SHOULDER SURGERY 2013, 2014 LAPROSCOPIC SURGERY FOR ENDOMETRIOSIS 2011 D_C X1, C/S X1 CHLOMID, 2 IVF TREATMENTS (12/24/2015 16:17:Sugey Henderson RN ) INFECTIOUS HISTORY Inf Hx Gonorrhea: No (12/24/2015 16:17:Sugey Henderson RN ) Inf Hx Chlamydia: No (12/24/2015 16:17:Sugey Henderson RN ) Inf Hx Syphilis: No (12/24/2015 16:17:Sugey Henderson RN ) Inf Hx HIV/AIDS: No (12/24/2015 16:17:Sugey Henderson RN ) Inf Hx Human Papilloma Virus: No (12/24/2015 16:17:Sugey Henderson RN ) Inf Hx Pt/Partner Genital Herpes: No (12/24/2015 16:17:Sugey Henderson RN ) Inf Hx Tuberculosis/Exposure: No (12/24/2015 16:17:Sugey Henderson RN ) Inf Hx Hepatitis B,C: No (12/24/2015 16:17:Sugey Henderson RN ) Inf Hx Rash or Viral Illness: No (12/24/2015 16:17:Sugey Henderson RN ) GENETIC HISTORY Gen Hx Age >=35 at HAPRER: No (12/24/2015 16:17:Sugey Henderson RN ) Gen Hx Thalassemia: No (12/24/2015 16:17:Sugey Henderson RN ) Gen Hx Congenital Heart Defect: No (12/24/2015 16:17:Sugey Henderson RN ) Gen Hx Neural Tube Defect: No (12/24/2015 16:17:Sugey Henderson RN ) Gen Hx Down's Syndrome: No (12/24/2015 16:17:Sugey Henderson RN ) Gen Hx Elmer-Sachs: No (12/24/2015 16:17:Sugey Henderson RN ) Gen Hx Manuel: No (12/24/2015 16:17:Sugey Henderson RN ) Gen Hx Familial Dysautonomia: No (12/24/2015 16:17:Sugey Henderson RN ) Gen Hx Sickle Cell Disease/Trait: No (12/24/2015 16:17:Sugey Henderson RN ) Gen Hx Hemophilia/Blood Disorder: No (12/24/2015 16:17:Sugey Henderson RN ) Gen Hx Muscular Dystrophy: No (12/24/2015 16:17:Sugey Henderson RN ) Gen Hx Cystic Fibrosis: No (12/24/2015 16:17:Sugey Henderson RN ) Gen Hx Huntingtons Chorea: No (12/24/2015 16:17:Sugey Henderson RN ) Gen Hx Mental Retardation/Autism: No (12/24/2015 16:17:Sugey Henderson RN ) Gen Hx Tested for Fragile X: No (12/24/2015 16:17:Sugey Henderson RN ) Gen Hx Other Inher/Chromosomal: No (12/24/2015 16:17:Sugey Henderson RN ) Gen Hx Maternal Metabolic DO: No (12/24/2015 16:17:Sugey Henderson RN ) Gen Hx Pt Father or FOB Defect: No (12/24/2015 16:17:Sugey Henderson RN ) Gen Hx Other Genetic History: No (12/24/2015 16:17:Sugey Henderson RN ) Gen Hx Drugs/Meds since LMP: No (12/24/2015 16:17:Sugey Henderson RN )
--- NOTE | 2017-02-19 10:45 | L&D Discharge Summary ---
OB Discharge Summary Datetime Report Generated by CPN: 02/19/2017 10:45 DISCHARGE DIAGNOSIS Diagnosis/Symptoms: Other Diagnoses/Symptoms Other: IUP at 32.2, not in labor Gestation: 32.2 Number of Babies in Womb: 1 Parity: 2 DIET/ACTIVITY/RESTRICTIONS Diet: Regular Diet Restrictions: Instructed to advance as tolerated Activity: Normal Activity TEACHING/INSTRUCTIONS/REFERRALS Instructions Given To: patient Instructions Understood: Patient Verbalized Understanding Referrals: None Educational Materials- Other: kick counts, dehydration DISCHARGE INFORMATION Discharged AMA: No Discharge Date/Time: 02/18/2017 16:44 Discharged To: Home Discharge Provider Name: Di PetersJACQUI Accompanied By: self Discharge Method: Ambulatory Condition: Stable FOLLOW UP INFORMATION Follow Up With: [facility] Follow Up On: As Scheduled Follow Up Phone Number: [employer] [facility] - Comments: Patient instructed to return for ctx every 5 min lasting 60 seconds, decreased movement, ruptur eof membranes, heavy vaginal bleeding GENERAL INSTR-CALL PROVIDER IF: Contractions: Contractions or cramps become more frequent than 8 in one hour or 4 in 20 minutes; Regular painful contractions every 5 minutes or less for one hour. Time your contractions from the beginning of one to the beginning of the next Pressure: Pressure in your vagina or lower abdomen that may feel like the baby is pushing down Period Like Cramps: Period-like cramps or low dull backache that may come and go Cramps/Diarrhea: Abdominal cramps that may be accompanied by diarrhea Gush of Fluid/Blood: Gush of fluid or blood from your vagina (it is normal to have spotting after vaginal exam or intercourse) Vaginal Discharge: Change in the type or amount of vaginal discharge Decreased Movement: Your baby is not moving as much as usual- 4 movements in 1 hour after drinking and resting on side Temperature: Temperature greater than 100.0(F) orally
--- NOTE | 2017-02-19 10:45 | Antepartum Discharge Summary ---
Antepartum DC Datetime Report Generated by CPN: 02/19/2017 10:45 DIET/ACTIVITY/RESTRICTIONS Diet: Regular (02/18/2017 16:45:Elizabeth Russo RN) Activity: Normal Activity (02/18/2017 16:45:Elizabeth Russo RN) TEACHING/INSTRUCTIONS/REFERRALS Instructions Given To: patient (02/18/2017 16:45:Elizabeth Russo RN) Instructions Understood: Patient Verbalized Understanding (02/18/2017 16:45:Elizabeth Karan, RN) Referrals: None (02/18/2017 16:45:Elizabeth Russo RN) Educational Materials- Other: kick counts, dehydration (02/18/2017 16:45:Elizabeth Russo RN) DISCHARGE INFORMATION Discharged AMA: No (02/18/2017 16:45:Elizabeth Russo RN) Discharge Date/Time: 02/18/2017 16:44 (02/18/2017 16:45:Elizabeth Russo RN) Discharged To: Home (02/18/2017 16:45:Elizabeth Russo RN) Discharge Provider Name: Di Peters CNM (02/18/2017 16:45:Elizabeth Russo RN) Accompanied By: self (02/18/2017 16:45:Elizabeth Russo RN) Discharge Method: Ambulatory (02/18/2017 16:45:Elizabeth Russo RN) Condition: Stable (02/18/2017 16:45:Elizabeth Russo RN) FOLLOW UP INFORMATION Follow Up With: [facility] (02/18/2017 16:45:Elizabeth Russo RN) Follow Up On: As Scheduled (02/18/2017 16:45:Elizabeth Russo RN) Follow Up Phone Number: [facility] - (02/18/2017 16:45:Elizabeth Russo RN) GENERAL INSTR-CALL PROVIDER IF: Contractions: Contractions or cramps become more frequent than 8 in one hour or 4 in 20 minutes; Regular painful contractions every 5 minutes or less for one hour. Time your contractions from the beginning of one to the beginning of the next (02/18/2017 16:45:Elizabeth Russo RN) Pressure: Pressure in your vagina or lower abdomen that may feel like the baby is pushing down (02/18/2017 16:45:Elizabeth Russo RN) Period Like Cramps: Period-like cramps or low dull backache that may come and go (02/18/2017 16:45:Elizabeth Russo RN) Cramps/Diarrhea: Abdominal cramps that may be accompanied by diarrhea (02/18/2017 16:45:Elizabeth Russo RN) Gush of Fluid/Blood: Gush of fluid or blood from your vagina (it is normal to have spotting after vaginal exam or intercourse) (02/18/2017 16:45:Elizabeth Russo RN) Vaginal Discharge: Change in the type or amount of vaginal discharge (02/18/2017 16:45:Elizabeth Russo RN) Decreased Movement: Your baby is not moving as much as usual- 4 movements in 1 hour after drinking and resting on side (02/18/2017 16:45:Elizabeth Russo RN) Temperature: Temperature greater than 100.0(F) orally (02/18/2017 16:45:Elizabeth Russo RN) Hypertension Signs/Symptoms: Severe headache which is not relieved 30 minutes after taking Tylenol(Acetaminophen); Blurry vision or spots before your eyes; Severe heartburn or pain on the upper right side of your abdomen that is not relieved by an antacid; Increased swelling in your face, hands or feet (02/18/2017 16:45:Elizabeth Russo RN) Urinary Output: Decreased urinary output or dark colored urine (02/18/2017 16:45:Elizabeth Russo RN)
== END 2017-02-18 16:40 | disposition home or self-care (01) ==
LOC: LC 14:45
PROVIDERS: ATTEND Obstetrics & Gynecology
PROC: 4A1HXCZ Monitoring of Products of Conception, Cardiac Rate, External Approach (ICD-10-PCS; principal; 2017-02-18)
DX: Z34.93 Encounter for supervision of normal pregnancy, unspecified, third trimester (principal); Z36 Encounter for antenatal screening of mother; Z3A.32 32 weeks gestation of pregnancy
CPT/HCPCS: 80307; 81001

== ENCOUNTER 2017-02-20 13:52 | Outpatient (CLI) | payer MEDICAID ==
[2017-02-20 14:31] LABS: APPEARANCE,URINE SLIGHTLY-CLOUDY; BILIRUBIN,URINE NEGATIVE (NEGATIVE); GLUCOSE, URINE NEGATIVE (NEGATIVE); KETONES,URINE 80 mg/dL (NEGATIVE); LEUKOCYTE ESTERASE,URINE TRACE (NEGATIVE); NITRITE,URINE NEGATIVE (NEGATIVE); PROTEIN,URINE 30 mg/dL (NEGATIVE); URINE SPECIFIC GRAVITY 1.016; UROBILINOGEN,URINE NEGATIVE mg/dL (<2.0)
[2017-02-20 14:40] LABS: URINE BARBITURATES SCREEN NEGATIVE; URINE METHADONE SCREEN NEGATIVE; URINE PHENCYCLIDINE SCREEN NEGATIVE
[2017-02-20 14:52] LABS: URINE OPIATES LOW UNCONFIRMED POSITIVE
--- NOTE | 2017-02-20 15:28 | Non Stress Test Report ---
Non Stress Test Datetime Report Generated by CPN: 02/20/2017 15:27 DEMOGRAPHIC EGA NST: 32.4 INDICATION Indication for Study: Ordered by Provider MONITORING Monitor Explained: Monitor Explained; Test Explained; Patient Verbalized Understanding Time on Monitor: 02/20/2017 14:04 Time off Monitor: 02/20/2017 14:54 NST Duration: 50 NST INTERVENTIONS NST Interventions: None Physician Notified NST: Dr. Olsen BABY A Movement : Present Contraction Frequency : rare FHR Baseline : 150 Accelerations : 15X15 Decelerations : None Variability : Moderate 6-25bpm NST Review: Meets Criteria for Reactive NST NST Review and Verified By : Tigist Suarez RN NST Results: Reactive NST REPORT Report Trigger: Send Report
== END 2017-02-20 15:25 | disposition home or self-care (01) ==
LOC: LC 13:52
PROVIDERS: ATTEND Student in an Organized Health Care Education/Training Program
PROC: 4A1HXCZ Monitoring of Products of Conception, Cardiac Rate, External Approach (ICD-10-PCS; principal; 2017-02-20)
DX: O99.283 Endocrine, nutritional and metabolic diseases complicating pregnancy, third trimester (principal); E86.0 Dehydration; Z3A.32 32 weeks gestation of pregnancy
CPT/HCPCS: 59025; 80307; 81001

== ENCOUNTER 2017-02-21 09:43 | Outpatient (CLI) | payer MEDICAID ==
[2017-02-21 10:37] LABS: APPEARANCE,URINE CLOUDY; BILIRUBIN,URINE NEGATIVE (NEGATIVE); GLUCOSE, URINE NEGATIVE (NEGATIVE); KETONES,URINE 80 mg/dL (NEGATIVE); LEUKOCYTE ESTERASE,URINE SMALL (NEGATIVE); NITRITE,URINE NEGATIVE (NEGATIVE); PROTEIN,URINE 100 mg/dL (NEGATIVE); URINE SPECIFIC GRAVITY 1.031; UROBILINOGEN,URINE NEGATIVE mg/dL (<2.0)
[2017-02-21 10:47] LABS: URINE BARBITURATES SCREEN NEGATIVE; URINE METHADONE SCREEN NEGATIVE; URINE PHENCYCLIDINE SCREEN NEGATIVE
[2017-02-21] MEDS ORDERED: RINGERS SOLUTION,LACTATED 1,000 ML IV PRN (10:49)
[2017-02-21 10:52] LABS: URINE OPIATES LOW UNCONFIRMED POSITIVE
[2017-02-21] MEDS ORDERED: DEXTROSE 5%-LACTATED RINGERS 1,000 ML IV PRN (11:00)
[2017-02-21] MEDS ORDERED: ONDANSETRON HCL INJ/PF 4 MG/2 ML SDV ONE (11:04)
[2017-02-21 11:28] LABS: ABSOLUTE LYMPHOCYTES (AUTO) 0.9 10^3/uL (0.5-4.7); ABSOLUTE MONOCYTES (AUTO) 0.5 10^3/uL (0.1-1.4); ABSOLUTE NEUT (AUTO) 5.8 10^3/uL (1.7-8.2); BASOPHILS % (AUTO) 0.1 % (0-2); EOSINOPHILS % (AUTO) 0.1 % (0-6); HEMATOCRIT 28.8 % (36.0-47.0); HEMOGLOBIN 9.8 g/dL (12.0-15.5); HGB HCT DIFFERENCE 0.6; LYMPHOCYTES % (AUTO) 12.4 % (13-45); MEAN CORPUSCULAR HEMOGLOBIN 28.1 pg (27.0-33.4); MEAN CORPUSCULAR VOLUME 83 fl (80-97); MONOCYTES % (AUTO) 6.3 % (3-13); RED BLOOD COUNT 3.49 10^6/uL (3.72-5.28); RED CELL DISTRIBUTION WIDTH 14.7 % (11.5-14.0); SEGMENTED NEUTROPHILS % (AUTO) 81.1 % (42-78); WHITE BLOOD COUNT 7.2 10^3/uL (4.0-10.5)
[2017-02-21 11:42] LABS: ALANINE AMINOTRANSFERASE 17 U/L (9-52); ALBUMIN 3.2 g/dL (3.5-5.0); ALKALINE PHOSPHATASE 135 U/L (38-126); ANION GAP 9 (5-19); ASPARTATE AMINO TRANSFERASE 14 U/L (14-36); BILIRUBIN,DIRECT 0.2 mg/dL (0.0-0.4); BILIRUBIN,TOTAL 0.9 mg/dL (0.2-1.3); BLOOD UREA NITROGEN 9 mg/dL (7-20); CALCIUM 8.7 mg/dL (8.4-10.2); CARBON DIOXIDE 23 mmol/L (22-30); CHLORIDE 107 mmol/L (98-107); CREATININE RESULT 0.58 mg/dL (0.52-1.25); GLUCOSE 97 mg/dL (75-110); POTASSIUM 4.3 mmol/L (3.6-5.0); SODIUM 138.7 mmol/L (137-145)
[2017-02-21] MEDS ORDERED: ONDANSETRON HCL INJ/PF 4 MG/2 ML SDV IV ONE (11:45)
--- NOTE | 2017-02-21 18:01 | L&D Current Admission ---
Current Admit Datetime Report Generated by CPN: 02/21/2017 18:00 ADMISSION INFORMATION Chief Complaint: Decreased Movement; Flank Pain; Vomiting (02/21/2017 10:02:TIAGO Hunt
--- NOTE | 2017-02-21 18:01 | L&D General Admission ---
General Admit Datetime Report Generated by CPN: 02/21/2017 18:00 INFORMATION Patient Age: 24 (09/20/2014 12:44:QS system process) EDC: 04/13/2017 00:00 (12/24/2015 16:17:Katrina Briggs RN) : 6 (12/24/2015 16:17:Katrina Briggs RN) Para: 2 (12/24/2015 16:17:Katrina Briggs RN) Term: 2 (12/24/2015 16:17:Katrina Briggs RN) : 0 (12/24/2015 16:17:Sugey Henderson RN ) Spontaneous Abortions: 3 (12/24/2015 16:17:Sugey Henderson RN ) Induced Abortions: 0 (12/24/2015 16:17:Sugey Henderson RN ) Livin (12/24/2015 16:17:Katrina Briggs RN) Cesareans: 1 (12/24/2015 16:17:Sugey Henderson RN ) VBACs: 0 (12/24/2015 16:17:Sugey Henderson RN ) Ectopic: 0 (12/24/2015 16:17:Sugey Henderson RN ) Multiple Births: 0 (12/24/2015 16:17:Sugey Henderson RN ) Baby, Number in Womb: 1 (12/27/2016 23:17:Katrina Briggs RN) CARE Primary Special Education Itinerant Teacher: [facility] (12/24/2015 16:17:Jerilyn Arevalo RN) Adequate Care: Yes (12/24/2015 16:17:Sugey Henderson RN ) Height (in): 67 (02/20/2017 15:34:QS system process) ALLERGIES Medication Allergy: Yes (12/24/2015 16:17:Sugey Henderson RN ) Medication Allergies: Penicillins/Generalized Itc (02/20/2017) (02/20/2017 15:33:QS system process) Latex Allergy: No Latex Allergies (12/24/2015 16:17:Sugey Henderson RN ) COMMUNICATION Primary Language: Ugandan (12/24/2015 16:17:Sugey Henderson RN ) Medical Tx Preferred Language: Ugandan (12/24/2015 16:17:Yara Uribe RN) Ugandan Communication Ability: Speaks Ugandan; Reads Ugandan (12/24/2015 16:17:Elizabeth Munoz RN) Communication Barrier(s): None (12/24/2015 16:17:Yara Uribe RN) DEMOGRAPHICS Address: [address] [place] [id number] (09/20/2014 12:44:QS system process) Zipcode: [id number] (09/20/2014 12:44:QS system process) Home (09/20/2014 12:44:QS system process) Work (12/27/2016 22:05:QS system process) SSN: [id number] (09/20/2014 12:44:QS system process) Next of Kin Name: YORDAN AGUAYO (09/20/2014 12:44:QS system process) Next of Kin (09/20/2014 12:44:QS system process) Next of Kin Relationship: SPO (09/20/2014 12:44:QS system process) Date of : 1990 (09/20/2014 12:44:QS system process) Marital Status: (09/20/2014 12:44:QS system process) Sex: Female (09/20/2014 12:44:QS system process) Race: (09/20/2014 12:44:QS system process) Ethnicity: Non- or (09/20/2014 12:44:QS system process) Mandaen: None (09/20/2014 12:44:QS system process) DRUG AND ALCOHOL USE Alcohol: No (12/24/2015 16:17:Sugey Henderson RN ) Cigarettes: Former Smoker. [id number] (12/24/2015 16:17:Sugey Henderson RN ) Marijuana: No (12/24/2015 16:17:Sugey Henderson RN ) Cocaine: No (12/24/2015 16:17:Sugey Henderson RN ) Other Illicit Drugs: No (12/24/2015 16:17:Sugey Henderson RN ) VACCINE HISTORY Influenza Vaccine: Yes (12/24/2015 16:17:Sugey Henderson RN ) Influenza Date: 2015 (12/24/2015 16:17:Katrina Briggs RN) Pneumococcal Vaccine: No (12/24/2015 16:17:Sugey Henderson RN ) Tetanus Vaccine: Yes (12/24/2015 16:17:Sugey Henderson RN ) Tdap Vaccine: Yes (12/24/2015 16:17:Sugey Henderson RN ) Hepatitis B Vaccine: Yes (12/24/2015 16:17:Sugey Henderson RN ) Assistant Dean: [facility] (12/24/2015 16:17:Katrina Briggs RN) Feeding Preference: Formula (12/24/2015 16:17:Katrina Briggs RN) Benefit of Breast Feed Discussed: Yes (12/24/2015 16:17:Elizabeth Munoz RN) Circumcision: N/A (12/24/2015 16:17:Katrina Briggs RN) Classes Attended: No (12/24/2015 16:17:Katrina Briggs RN) Tubal Ligation: Yes (12/24/2015 16:17:Katrina Briggs RN) Tubal Authorization Signed: No (12/24/2015 16:17:Katrina Briggs RN) Consent: N/A (12/24/2015 16:17:Katrina Briggs RN) Consent Signed: No (12/24/2015 16:17:Katrina Briggs RN) Pain Management Plans: Spinal (12/24/2015 16:17:Elizabeth Munoz, RN) Other Pain Management Plans: scheduled c/s (12/24/2015 16:17:Elizabeth Munoz, RN) Plans for Labor and Delivery: None (12/24/2015 16:17:Elizabeth Munoz RN) Support Person: Yordan (12/24/2015 16:17:Katrina Briggs RN) Support Person Relationship: (12/24/2015 16:17:Katrina Briggs RN) Cultural/Spritual Practice: No (12/24/2015 16:17:Katrina Briggs RN) Spir/Cult Dietary Needs: No (12/24/2015 16:17:Katrina Briggs RN) LIVING SITUATION/DISCHARGE PLAN Living Arrangements: House (12/24/2015 16:17:Sugey Henderson RN ) Adequate Access to:: Electric; Heat; Refrigeration; Plumbing/Running water; Phone; Transportation (12/24/2015 16:17:Sugey Henderson RN ) WIC Program: Yes (12/24/2015 16:17:Katrina Briggs RN) Discharge Mail Room Clerk Person: Yordan (12/24/2015 16:17:Sugey Henderson RN ) Person to Help after Discharge: Yordan family (12/24/2015 16:17:Sugey Henderson RN ) Currently Using Commun Resources: Yes (12/24/2015 16:17:Sugey Henderson RN ) Specify Current Resource Used: Medicaid (12/24/2015 16:17:Sugey Henderson RN ) Outside Agency/Airplane Designer: No (12/24/2015 16:17:Sugey Henderson RN ) Car Seat for Discharge: Yes (12/24/2015 16:17:Sugey Henderson RN ) Adoption Requested: No (12/24/2015 16:17:Sugey Henderson RN ) Pt Contact w/infant Post : N/A (12/24/2015 16:17:Sugey Henderson RN ) LABS Blood Type: A Positive (12/24/2015 16:17:Sugey Henderson RN ) Hemoglobin: 9.8 L (02/21/2017 11:14:QS system process) Hematocrit: 28.8 L (02/21/2017 11:14:QS system process) MCV: 83 (02/21/2017 11:14:QS system process) Gonorrhea: Negative (12/24/2015 16:17:Sugey Henderson RN ) Chlamydia: Negative (12/24/2015 16:17:Sugey Henderson RN ) RPR/VDRL: Nonreactive (12/24/2015 16:17:Sugey Henderson RN ) HIV Exposure Test: Negative (12/24/2015 16:17:Sugey Henderson RN ) Hepatitis B: Negative (12/24/2015 16:17:Sugey Henderson RN ) Rubella: Immune (12/24/2015 16:17:Sugey Henderson RN ) Varicella: Susceptible (12/24/2015 16:17:Sugey Henderson RN ) OB/PREVIOUS HISTORY Previous Procedures: Ultrasound; NST (12/24/2015 16:17:Katrina Briggs RN) Current Procedures: Ultrasound (12/24/2015 16:17:Katrina Briggs RN) History of Previous : No (12/24/2015 16:17:Sugey Henderson RN ) History of Gestational Diabetes: No (12/24/2015 16:17:Sugey Henderson RN ) History of PIH: No (12/24/2015 16:17:Sugey Henderson RN ) History of Incompetent Cervix: No (12/24/2015 16:17:Sugey Henderson RN ) History of Placenta Previa/Abrup: No (12/24/2015 16:17:Sugey Henderson RN ) History of Macrosomia: No (12/24/2015 16:17:Sugey Henderson RN ) History of IUGR: No (12/24/2015 16:17:Sugey Henderson RN ) History of Hemorrhage: No (12/24/2015 16:17:Sugey Henderson RN ) History of Loss/Stillborn: No (12/24/2015 16:17:Sugey Henderson RN ) History of : No (12/24/2015 16:17:Sugey Henderson RN ) History of D (Rh) Sensitization: No (12/24/2015 16:17:Sugey Henderson RN ) History Recurrent Loss/Stillborn: No (12/24/2015 16:17:Sugey Henderson RN ) History Depression/PP Depression: No (12/24/2015 16:17:Sugey Henderson RN ) History of Uterine Anomaly/NAHOMI: No (12/24/2015 16:17:Sugey Henderson RN ) History of Infertility: No (12/24/2015 16:17:Sugey Henderson RN ) History of ART Treatment: Yes (12/24/2015 16:17:Sugey Henderson RN ) History of NAHOMI: No (12/24/2015 16:17:Sugey Henderson RN ) Comments Obstetrical History: G1:MAB with D_C at 10 weeks G2: SAB @ 6 WEEKS G3: SAB @ 6 WEEKS G4: 10/12/13 @ 39 WEEKS, C/S-SGA, FEMALE 5.10 LBS, DISTRESS AT [facility] G5: delivered at 39.1 weeks gestation via csection, female 7lb 10 oz g6: Current , close spaced, GDM diet controlled (12/24/2015 16:17:Katrina Briggs RN) MEDICAL HISTORY Med Hx Diabetes: Yes (12/24/2015 16:17:Jerilyn Arevalo RN) Diabetes Type: Gestational Diabetes (12/24/2015 16:17:Katrina Briggs RN) Med Hx Hypertension: No (12/24/2015 16:17:Sugey Henderson RN ) Med Hx Heart Disease: No (12/24/2015 16:17:Sugey Henderson RN ) Med Hx Autoimmune Disorder: No (12/24/2015 16:17:Sugey Henderson RN ) Med Hx Kidney Disease/UTI: Yes (12/24/2015 16:17:Sugey Henderson RN ) Med Hx Neurologic/Epilepsy: No (12/24/2015 16:17:Sugey Henderson RN ) Med Hx Psychiatric Disorders: No (12/24/2015 16:17:Sugey Henderson RN ) Med Hx Hepatitis/Liver Disease: No (12/24/2015 16:17:Sugey Henderson RN ) Med Hx Varicosities/Phlebitis: No (12/24/2015 16:17:Sugey Henderson RN ) Med Hx Thyroid Dysfunction: No (12/24/2015 16:17:Sugey Henderson RN ) Med Hx Trauma/Violence: No (12/24/2015 16:17:Sugey Henderson RN ) Med Hx Blood Transfusion: No (12/24/2015 16:17:Sugey Henderson RN ) Med Hx Pulmonary (Asthma,TB): No (12/24/2015 16:17:Sugey Henderson RN ) Med Hx Breast: No (12/24/2015 16:17:Sugey Henderson RN ) Med Hx HEARING AID DISPENSER Surgery: No (12/24/2015 16:17:Sugey Henderson RN ) Med Hx Hospitalization/Surgery: Yes (12/24/2015 16:17:Sugey Henderson RN ) Med Hx Anesthetic Complications: No (12/24/2015 16:17:Sugey Henderson RN ) Med Hx Abnormal Pap Smear: No (12/24/2015 16:17:Sugey Henderson RN ) Other Medical Diseases: No (12/24/2015 16:17:Sugey Henderson RN ) Med Hx Significant Family Hx: No (12/24/2015 16:17:Sugey Henderson RN ) Details of Med/Surg Hx: RIGHT SHOULDER SURGERY 2013, 2015 LAPROSCOPIC SURGERY FOR ENDOMETRIOSIS 2011 D_C X1, C/S X1 CHLOMID, 2 IVF TREATMENTS (12/24/2015 16:17:Sugey Henderson RN ) INFECTIOUS HISTORY Inf Hx Gonorrhea: No (12/24/2015 16:17:Sugey Henderson RN ) Inf Hx Chlamydia: No (12/24/2015 16:17:Sugey Henderson RN ) Inf Hx Syphilis: No (12/24/2015 16:17:Sugey Henderson RN ) Inf Hx HIV/AIDS: No (12/24/2015 16:17:Sugey Henderson RN ) Inf Hx Human Papilloma Virus: No (12/24/2015 16:17:Sugey Henderson RN ) Inf Hx Pt/Partner Genital Herpes: No (12/24/2015 16:17:Sugey Henderson RN ) Inf Hx Tuberculosis/Exposure: No (12/24/2015 16:17:Sugey Henderson RN ) Inf Hx Hepatitis B,C: No (12/24/2015 16:17:Sugey Henderson RN ) Inf Hx Rash or Viral Illness: No (12/24/2015 16:17:Sugey Henderson RN ) GENETIC HISTORY Gen Hx Age >=35 at HARPER: No (12/24/2015 16:17:Sugey Henderson RN ) Gen Hx Thalassemia: No (12/24/2015 16:17:Sugey Henderson RN ) Gen Hx Congenital Heart Defect: No (12/24/2015 16:17:Sugey Henderson RN ) Gen Hx Neural Tube Defect: No (12/24/2015 16:17:Sugey Henderson RN ) Gen Hx Down's Syndrome: No (12/24/2015 16:17:Sugey Henderson RN ) Gen Hx Elmer-Sachs: No (12/24/2015 16:17:Sugey Henderson RN ) Gen Hx Manuel: No (12/24/2015 16:17:Sugey Henderson RN ) Gen Hx Familial Dysautonomia: No (12/24/2015 16:17:Sugey Henderson RN ) Gen Hx Sickle Cell Disease/Trait: No (12/24/2015 16:17:Sugey Henderson RN ) Gen Hx Hemophilia/Blood Disorder: No (12/24/2015 16:17:Sugey Henderson RN ) Gen Hx Muscular Dystrophy: No (12/24/2015 16:17:Sugey Henderson RN ) Gen Hx Cystic Fibrosis: No (12/24/2015 16:17:Sugey Henderson RN ) Gen Hx Huntingtons Chorea: No (12/24/2015 16:17:Sugey Henderson RN ) Gen Hx Mental Retardation/Autism: No (12/24/2015 16:17:Sugey Henderson RN ) Gen Hx Tested for Fragile X: No (12/24/2015 16:17:Sugey Henderson RN ) Gen Hx Other Inher/Chromosomal: No (12/24/2015 16:17:Sugey Henderson RN ) Gen Hx Maternal Metabolic DO: No (12/24/2015 16:17:Sugey Henderson RN ) Gen Hx Pt Father or FOB Defect: No (12/24/2015 16:17:Sugey Henderson RN ) Gen Hx Other Genetic History: No (12/24/2015 16:17:Sugey Henderson RN ) Gen Hx Drugs/Meds since LMP: No (12/24/2015 16:17:Sugey Henderson RN )
== END 2017-02-21 13:55 | disposition home or self-care (01) ==
LOC: LC 09:43
PROVIDERS: ATTEND Obstetrics & Gynecology
PROC: 4A1HXCZ Monitoring of Products of Conception, Cardiac Rate, External Approach (ICD-10-PCS; principal; 2017-02-21)
DX: O99.283 Endocrine, nutritional and metabolic diseases complicating pregnancy, third trimester (principal); E86.0 Dehydration; O36.8130 Decreased fetal movements, third trimester, not applicable or unspecified; O26.893 Other specified pregnancy related conditions, third trimester; R10.9 Unspecified abdominal pain; Z3A.32 32 weeks gestation of pregnancy
CPT/HCPCS: 59025; 36415; 87086; 82962; 85025; 80053; 81001; 80307; 76770; J2405

== ENCOUNTER 2017-03-11 15:34 | Outpatient (CLI) | payer MEDICAID | END 2017-03-11 16:12 | disposition home or self-care (01) | LOC: LC 15:34 | PROVIDERS: ATTEND Obstetrics & Gynecology | PROC: 4A0HXCZ Measurement of Products of Conception, Cardiac Rate, External Approach (ICD-10-PCS; principal; 2017-03-11) | DX: Z34.01 Encounter for supervision of normal first pregnancy, first trimester (principal) | CPT/HCPCS: 59025 ==

== ENCOUNTER 2017-04-07 04:59 | Inpatient (IN) | payer MEDICAID ==
[2017-04-02 11:45] LABS: ABSOLUTE LYMPHOCYTES (AUTO) 1.7 10^3/uL (0.5-4.7); ABSOLUTE MONOCYTES (AUTO) 0.6 10^3/uL (0.1-1.4); ABSOLUTE NEUT (AUTO) 6.2 10^3/uL (1.7-8.2); BASOPHILS % (AUTO) 0.3 % (0-2); EOSINOPHILS % (AUTO) 0.4 % (0-6); HEMATOCRIT 30.9 % (36.0-47.0); HEMOGLOBIN 10.4 g/dL (12.0-15.5); HGB HCT DIFFERENCE 0.3; LYMPHOCYTES % (AUTO) 19.6 % (13-45); MEAN CORPUSCULAR HEMOGLOBIN 27.4 pg (27.0-33.4); MEAN CORPUSCULAR HGB CONC 33.6 g/dL (32.0-36.0); MEAN CORPUSCULAR VOLUME 81 fl (80-97); MONOCYTES % (AUTO) 6.6 % (3-13); RED BLOOD COUNT 3.79 10^6/uL (3.72-5.28); RED CELL DISTRIBUTION WIDTH 15.5 % (11.5-14.0); SEGMENTED NEUTROPHILS % (AUTO) 73.1 % (42-78); WHITE BLOOD COUNT 8.5 10^3/uL (4.0-10.5)
[2017-04-02 11:49] LABS: APPEARANCE,URINE SLIGHTLY-CLOUDY; BILIRUBIN,URINE NEGATIVE (NEGATIVE); GLUCOSE, URINE NEGATIVE (NEGATIVE); KETONES,URINE NEGATIVE (NEGATIVE); LEUKOCYTE ESTERASE,URINE TRACE (NEGATIVE); NITRITE,URINE NEGATIVE (NEGATIVE); PROTEIN,URINE 30 mg/dL (NEGATIVE); URINE SPECIFIC GRAVITY 1.025; UROBILINOGEN,URINE NEGATIVE mg/dL (<2.0)
[2017-04-02 12:20] LABS: URINE BARBITURATES SCREEN NEGATIVE; URINE METHADONE SCREEN NEGATIVE; URINE PHENCYCLIDINE SCREEN NEGATIVE
[2017-04-02 13:12] LABS: URINE OPIATES LOW UNCONFIRMED POSITIVE
[2017-04-07] MEDS ORDERED: CEFAZOLIN 1 GM/D5W RTU 1 GM/50 ML RTUPB IV PRN (05:00)
[2017-04-07] MEDS ORDERED: LACTATED RINGERS 1000 ML IV PRN (05:00)
[2017-04-07] MEDS ORDERED: LIDOCAINE 0.5% INJ-PF (5 MG/ML) 50 ML SDV SUBCUT PRN (05:00)
[2017-04-07] MEDS ORDERED: RINGERS SOLUTION,LACTATED 1,000 ML IV ONE (05:00)
[2017-04-07] MEDS ORDERED: KETOROLAC TROMETHAMINE INJ/PF 30 MG/1 ML SDV ONE (07:36)
[2017-04-07] MEDS ORDERED: OXYTOCIN 10 UNIT/ML VIAL ONE (07:36)
[2017-04-07] MEDS ORDERED: EPHEDRINE SULFATE INJ 50 MG/1 ML AMPULE ONE (07:36)
[2017-04-07] MEDS ORDERED: FENTANYL CITRATE INJ/PF 250 MCG/5 ML AMPULE ONE (07:36)
[2017-04-07] MEDS ORDERED: FENTANYL CITRATE INJ/PF 100 MCG/2 ML AMPUL ONE (07:36)
[2017-04-07] MEDS ORDERED: MIDAZOLAM 2 MG/2 ML INJ ONE (07:37)
[2017-04-07] MEDS ORDERED: ACETAMINOPHEN 100 ML IV ONE (07:37)
[2017-04-07] MEDS ORDERED: ONDANSETRON HCL INJ/PF 4 MG/2 ML SDV ONE (07:37)
[2017-04-07] MEDS ORDERED: OXYTOCIN/NORMAL SALINE 20 UNIT/1,000 ML RTUINJ ONE (07:37)
--- NOTE | 2017-04-07 08:11 | Non Stress Test Report ---
Non Stress Test Datetime Report Generated by CPN: 04/07/2017 08:11 DEMOGRAPHIC EGA NST: 35.2 EGA NST: 32.5 INDICATION Indication for Study: Diabetes Mellitus; Ordered by Provider Indication for Study: Ordered by Provider MONITORING Monitor Explained: Monitor Explained; Test Explained; Patient Verbalized Understanding Monitor Explained: Monitor Explained; Test Explained; Patient Verbalized Understanding Time on Monitor: 03/11/2017 15:49 Time on Monitor: 02/21/2017 10:02 Time off Monitor: 03/11/2017 16:10 Time off Monitor: 02/21/2017 11:04 NST Duration: 21 NST Duration: 62 NST INTERVENTIONS NST Interventions: None NST Interventions: PO Hydration; IV Fluids; Reposition Patient Physician Notified NST: Nick Bolivar CNM Physician Notified NST: Dr. Galarza BABY A: [id number] Movement : Present Movement : Present Contraction Frequency : none Contraction Frequency : X1 FHR Baseline : 135 FHR Baseline : 80 Accelerations : 15X15 Accelerations : 15X15 Decelerations : None Decelerations : None Variability : Moderate 6-25bpm Variability : Moderate 6-25bpm NST Review: Meets Criteria for Reactive NST NST Review: Meets Criteria for Reactive NST NST Review and Verified By : Joanne Little RNC NST Review and Verified By : Ricardo Allen RN NST Results: Reactive NST Results: Reactive NST REPORT Report Trigger: Send Report
[2017-04-07] MEDS ORDERED: PROMETHAZINE HCL INJ 25 MG/1 ML VIAL IV PRN ×3 (08:48→09:02)
[2017-04-07] MEDS ORDERED: MEPERIDINE HCL/PF INJ 25 MG/1 ML DISP.SYRIN IV PRN (08:48)
[2017-04-07] MEDS ORDERED: OXYCODONE-ACETAMINOPHEN 5-325 MG TABLET PO PRN ×3 (08:48→09:02)
[2017-04-07] MEDS ORDERED: ONDANSETRON HCL INJ/PF 4 MG/2 ML SDV IV PRN (08:48)
[2017-04-07] MEDS ORDERED: DIPHENHYDRAMINE HCL 50 MG/ML VIAL IV PRN (08:48)
[2017-04-07] MEDS ORDERED: FENTANYL CITRATE INJ/PF 100 MCG/2 ML AMPUL IV PRN ×3 (08:48)
[2017-04-07] MEDS ORDERED: MORPHINE SULFATE 10 MG/ML INJ IV PRN (08:48)
[2017-04-07] MEDS ORDERED: ACETAMINOPHEN 100 ML IV PRN (09:02)
[2017-04-07] MEDS ORDERED: ACETAMINOPHEN 325 MG TABLET PO PRN (09:02)
[2017-04-07] MEDS ORDERED: MEASLES,MUMPS&RUBELLA VACC/PF 0.5 ML VIAL SUBCUT PRN (09:02)
[2017-04-07] MEDS ORDERED: RINGERS SOLUTION,LACTATED 1,000 ML IV PRN (09:02)
[2017-04-07] MEDS ORDERED: OXYTOCIN/NORMAL SALINE 1,000 ML IV PRN (09:02)
[2017-04-07] MEDS ORDERED: SIMETHICONE 80 MG TAB.CHEW PO PRN (09:02)
[2017-04-07] MEDS ORDERED: DIPH/PERTUSS(ACELL)/TETANUS VAC/PF 0.5 ML SYR (>=10YO) IM PRN (09:02)
[2017-04-07] MEDS ORDERED: NALBUPHINE HCL INJ 10 MG/1 ML AMPULE ONE (09:11)
--- NOTE | 2017-04-07 09:12 | PDOC DELIVERY SUMMARY ---
Delivery Summary - Maternal Hx : V Hx # Term Pregnancies: 2 Hx Total # of Abortions (Sponateous & Elective): 2 HARPER: 04/13/17 Gestational Age: 39 Ruptured Membranes: AROM Fluids: Clear - Delivery Presentation: Vertex Heart Rate Monitoring: Done Pre-Operatively Support Person Present: Yes Location: LD : Scheduled Placenta: Within Normal Limits Delivery of Placenta Date: 04/07/17 Delivery of Placenta Time: 08:19 - Medications Type of Anesthesia:: Spinal - Assess and Care Baby 1 Female Delivery of Infant Date: 04/07/17 Delivery of Infant Time: 08:18 at 1 minute: 9 at 5 minutes: 9 Preprinted Number On Band: [id number] Skin to Skin: No To Nursery At: 08:24 [facility] Weight: 3365 kg Length: 20.25 in - Delivery Personnel Nursery RN: HARPREET ENRIQUE RN: RAGHU PADRON RN: GABBY LEMUS MD: MAVIS CASTRO Operator Coating Furnace: MAURA MUNOZ
--- NOTE | 2017-04-07 09:12 | Operative Report ---
Operative Report DATE OF SURGERY: 04/07/17 PREOPERATIVE DIAGNOSIS: Repeat to prevent risk of uterine rupture POSTOPERATIVE DIAGNOSIS: Same OPERATION: Repeat via low transverse uterine incision and tubal ligation with Filshie clips SURGEON: MAVIS CASTRO ANESTHESIA: Spinal TISSUE REMOVED OR ALTERED: Placenta COMPLICATIONS: None ESTIMATED BLOOD LOSS: 250 cc INTRAOPERATIVE FINDINGS: normal uterus tubes and ovaries PROCEDURE: Patient was taken to the OR and placed in supine position after her spinal anesthesia. She is prepared and draped in sterile fashion. Jiang was placed for drainage of the bladder. Low transverse incision was made and carried down the level of the fascia. The fascial incision was made with knife and extended bilaterally with curved Arreaga scissors. The fascia was off the rectus muscles using sharp and blunt dissection. The rectus muscles are in the midline. The peritoneum was entered without incident. Bladder blade was placed in uterine segment was identified. A low transverse incision was made creating a bladder flap. Bladder blade was placed low transverse uterine incision was made with the csafe knife and extended with fingertips. The baby was delivered with some fundal pressure. Mouth and nose were suctioned free. The cord was doubly clamped and cut. Baby is passed off to the depositing machine operator in attendance. The placenta was manually extracted with trailing membranes. The uterus was externalized wrapped in a moist lap sponge. Uterine contents wiped free. Uterus was closed with a running locking layer of 0 chromic suture using the second layer to imbricate the first completing a double layer closure of the uterus. The serosa was closed with a running 2-0 chromic stitch. Interceed was placed over the incision. A tubal ligation was performed with Filshie clips placed across both mid isthmic portions of the fallopian tubes. The pelvis was irrigated and suctioned free of fluid the uterus was replaced in the abdomen. The abdominal wall peritoneum was closed with running 2-0 chromic stitch. Fascia was closed with a running 0 Vicryl in 2 segments. Vik's layer was brought together with 0 plain gut stitch and the skin was closed with running subcuticular 4-0 undyed Vicryl stitch. The wound was dressed mother and baby did well.
[2017-04-07] MEDS: FENTANYL CITRATE INJ/PF 100 MCG/2 ML AMPUL ONE ×3 (09:21→09:36)
[2017-04-07] MEDS: HYDROMORPHONE HCL INJ/PF 2 MG/ML AMPULE ONE ×6 (09:46→10:36)
[2017-04-07] MEDS: HYDROMORPHONE HCL INJ/PF 2 MG/ML AMPULE IV PRN ×3 (11:21→18:10)
[2017-04-07] MEDS: PRENATAL VITAMIN W-O CA NO5/FE FUMARATE/FA CAPSULE PO SCH (11:24)
[2017-04-07] MEDS: DOCUSATE SODIUM 100 MG CAPSULE PO SCH ×2 (11:24→17:36)
[2017-04-07] MEDS ORDERED: IBUPROFEN 800 MG TABLET PO SCH (12:00)
[2017-04-07] MEDS: OXYCODONE-ACETAMINOPHEN 5-325 MG TABLET PO PRN (12:28)
[2017-04-07] MEDS ORDERED: PHENYLEPHRINE HCL INJ/PF 10 MG/1 ML SDV ONE (15:10)
[2017-04-07] MEDS ORDERED: OXYCODONE HCL IR 5 MG TABLET PO PRN (15:28)
[2017-04-07] MEDS: OXYCODONE HCL IR 5 MG TABLET PO PRN ×2 (16:33→20:39)
[2017-04-07] MEDS ORDERED: KETOROLAC TROMETHAMINE INJ/PF 30 MG/1 ML SDV IV SCH (18:00)
[2017-04-07] MEDS: IBUPROFEN 800 MG TABLET PO SCH (23:09)
[2017-04-08] MEDS: OXYCODONE HCL IR 5 MG TABLET PO PRN ×3 (00:35→11:40)
[2017-04-08] MEDS ORDERED: HYDROMORPHONE HCL 2 MG TABLET PO PRN (02:10)
[2017-04-08] MEDS: HYDROMORPHONE HCL INJ/PF 2 MG/ML AMPULE IV PRN ×2 (03:31→09:00)
[2017-04-08] MEDS: IBUPROFEN 800 MG TABLET PO SCH ×3 (05:07→18:09)
[2017-04-08 07:03] LABS: HEMATOCRIT 25.8 % (36.0-47.0); HEMOGLOBIN 8.6 g/dL (12.0-15.5); MEAN CORPUSCULAR HEMOGLOBIN 27.2 pg (27.0-33.4); MEAN CORPUSCULAR HGB CONC 33.4 g/dL (32.0-36.0); MEAN CORPUSCULAR VOLUME 82 fl (80-97); RED BLOOD COUNT 3.17 10^6/uL (3.72-5.28); RED CELL DISTRIBUTION WIDTH 15.8 % (11.5-14.0); WHITE BLOOD COUNT 9.3 10^3/uL (4.0-10.5)
--- NOTE | 2017-04-08 09:48 | PDOC PROGRESS REPORT ---
Subjective-OB Subjective: Post Delivery Day: 26 year old. Denies any needs at this time Resting in bed, c/o of pain, has never had this much pain before, + gas, eating well, bottle feeding, ambulating to BR Physical Exam (OB) Vital Signs: Temp Pulse Resp BP Pulse Ox 98.2 F 104 H 18 124/58 L 98 04/08/17 09:00 04/08/17 09:00 04/08/17 09:00 04/08/17 09:00 04/08/17 09:00 Intake & Output 04/07/17 04/08/17 04/09/17 06:59 06:59 06:59 Intake Total 4095 Output Total 3300 Balance 795 Weight 106.8 kg - Dressing Removed: No Incision: Dressing - Bilateral Tubal Ligation Site: Dressing - Lochia Lochia Amount: Scant < 10 ml Lochia Color: Rubra/Red - Abdomen Description: Tender, Soft, Round Hernia Present: No Fundal Description: Firm, Midline Fundal Height: u/u - u/2 Objective-Diagnostic Laboratory: 04/08/17 06:44 04/08/17 06:44 WBC 9.3 RBC 3.17 L Hgb 8.6 L Hct 25.8 L MCV 82 MCH 27.2 MCHC 33.4 RDW 15.8 H Plt Count 175 Assessment and Plan(PN) - Assessment and Plan (1) Anemia Qualifiers: Anemia type: iron deficiency Is this a current diagnosis for this admission?: Yes (2) Delivery by elective caesarean section Is this a current diagnosis for this admission?: Yes (3) GDM (gestational diabetes mellitus) Qualifiers: Gestational diabetes mellitus control: diet-controlled Is this a current diagnosis for this admission?: Yes - Time Spent with Patient Time with patient: Less than 15 minutes Medications reviewed and adjusted accordingly: Yes - Disposition Anticipated Discharge: Home Within: within 24 hours
[2017-04-08] MEDS: PRENATAL VITAMIN W-O CA NO5/FE FUMARATE/FA CAPSULE PO SCH (10:29)
[2017-04-08] MEDS: DOCUSATE SODIUM 100 MG CAPSULE PO SCH ×2 (10:29→18:09)
[2017-04-08] MEDS: OXYCODONE-ACETAMINOPHEN 5-325 MG TABLET PO PRN ×2 (16:03→20:02)
[2017-04-09] MEDS: IBUPROFEN 800 MG TABLET PO SCH ×4 (00:38→17:26)
[2017-04-09] MEDS: OXYCODONE-ACETAMINOPHEN 5-325 MG TABLET PO PRN ×4 (02:22→16:22)
[2017-04-09] MEDS: PRENATAL VITAMIN W-O CA NO5/FE FUMARATE/FA CAPSULE PO SCH (09:48)
[2017-04-09] MEDS: DOCUSATE SODIUM 100 MG CAPSULE PO SCH ×2 (09:48→17:26)
--- NOTE | 2017-04-09 14:06 | PDOC DISCHARGE SUMMARY ---
Final Diagnosis Discharge Date: 04/09/17 - Final Diagnosis (1) Status post repeat low transverse section Is this a current diagnosis for this admission?: Yes (2) Tubal ligation status Is this a current diagnosis for this admission?: Yes (3) Anemia Is this a current diagnosis for this admission?: Yes Discharge Data - Discharge Medication Home Medications: Pnv with Ca,No.72/Iron/FA [Pnv Plus Multivit Tab] 1 tab PO DAILY Doxylamine Succinate [Unisom Sleep Aid] 1 tab PO HSP PRN 12/27/16 Hydrocodone Bit/Homatropine [Hycodan 5-1.5 mg Tablet] 1 tab PO Q12H PRN Docusate Sodium [Colace 100 mg Capsule] 100 mg PO BID #0 capsule 04/09/17 Ferrous Sulfate [Feosol 325 mg Tablet] 325 mg PO BID #60 tablet 04/09/17 Fluconazole [Diflucan] 150 mg PO ONCE PRN #2 tablet 04/09/17 Ibuprofen [Motrin 800 mg Tablet] 800 mg PO Q8HP PRN #90 tablet 04/09/17 Oxycodone HCl/Acetaminophen [Percocet 5-325 mg Tablet] 1 tab PO Q4HP PRN #30 tablet 04/09/17 Reason(s) for Admission: Ceasarean Section-Repeat, Tubal Ligation Procedures: Ultrasound Intrapartum Procedure(s): : Low Cervical, Transverse, Tubal Ligation - Diagnosis Test Laboratory: Temp Pulse Resp BP Pulse Ox 98.0 F 99 18 110/63 98 04/09/17 08:36 04/09/17 08:36 04/09/17 08:36 04/09/17 08:36 04/09/17 08:36 04/02/17 04/02/17 04/08/17 11:05 11:12 06:44 RBC 3.79 3.17 L Hgb 10.4 L 8.6 L Hct 30.9 L 25.8 L Urine Opiates Screen UNCONFIRMED POSITIVE - Discharge information/Instructions Discharge Activity: Activity As Tolerated, Balance Activity w/Rest, No Driving, No Lifting Over 10 Pounds, No Lifting/Push/Pulling, Pelvic Rest, Slowly Increase Activity, No tub bath Discharge Diet: As Tolerated, Regular Disposition: HOME, SELF-CARE Follow [facility]: [facility], Weeks - incision check
[2017-04-09 16:35] VITALS: BP 123/72
== END 2017-04-09 18:05 | disposition home or self-care (01) | DRG 766 ==
LOC: 2S 04:59
PROVIDERS: ADMIT Obstetrics & Gynecology; ATTEND Obstetrics & Gynecology
PROC: 0UL70CZ Occlusion of Bilateral Fallopian Tubes with Extraluminal Device, Open Approach (ICD-10-PCS; 2017-04-07)
PROC: 4A1HXCZ Monitoring of Products of Conception, Cardiac Rate, External Approach (ICD-10-PCS; 2017-04-07)
PROC: 10D00Z1 Extraction of Products of Conception, Low, Open Approach (ICD-10-PCS; principal; 2017-04-07 07:45)
DX: O24.410 Gestational diabetes mellitus in pregnancy, diet controlled (principal); O34.211 Maternal care for low transverse scar from previous cesarean delivery; O99.02 Anemia complicating childbirth; D50.9 Iron deficiency anemia, unspecified; Z30.2 Encounter for sterilization; Z87.891 Personal history of nicotine dependence; Z79.899 Other long term (current) drug therapy; Z83.3 Family history of diabetes mellitus; Z83.6 Family history of other diseases of the respiratory system; Z82.49 Family history of ischemic heart disease and other diseases of the circulatory system; Z3A.39 39 weeks gestation of pregnancy; Z37.0 Single live birth
CPT/HCPCS: 1961; 36415; 59025; 80307; 81001; 82962; 85025; 85027; 86850; 86900; 86901; 94799; C1765; J0131; J1170; J1885; J2250; J2300; J2370; J2405; J2590; J3010; J3490; J7120

== ENCOUNTER 2018-01-01 19:43 | Emergency (ER) | payer OTHER, BC ==
[2018-01-01] MEDS ORDERED: ONDANSETRON HCL INJ/PF 4 MG/2 ML SDV IV ONE (20:15)
[2018-01-01] MEDS ORDERED: OXYCODONE-ACETAMINOPHEN 5-325 MG TABLET PO ONE (20:15)
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
[2018-01-01] MEDS ORDERED: HYDROCODONE/ACETAMINOPHEN 5-325 MG (6 TAB/ER DISP) PO PRN (21:57)
[2018-01-01 22:26] VITALS: BP 138/86
== END 2018-01-01 22:26 | disposition home or self-care (01) ==
LOC: ER 19:43
DX: M54.2 Cervicalgia (principal); M25.512 Pain in left shoulder; M25.562 Pain in left knee; V89.2XXA Person injured in unspecified motor-vehicle accident, traffic, initial encounter
CPT/HCPCS: 99284; 96374; 72050; 73562; 73030; J2405

== ENCOUNTER 2018-01-03 10:49 | Emergency (ER) | payer OTHER, BC ==
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
[2018-01-03] MEDS ORDERED: METHOCARBAMOL 500 MG TABLET PO ONE (12:38)
[2018-01-03] MEDS ORDERED: KETOROLAC TROMETHAMINE 60 MG/2 ML SDV IM ONE (12:38)
[2018-01-03 13:32] VITALS: BP 123/77
== END 2018-01-03 13:30 | disposition home or self-care (01) ==
LOC: ER 10:49
DX: M62.838 Other muscle spasm (principal); M54.9 Dorsalgia, unspecified; M54.2 Cervicalgia; V47.5XXA Car driver injured in collision with fixed or stationary object in traffic accident, initial encounter; Z88.0 Allergy status to penicillin
CPT/HCPCS: 99283; 96372; J1885

== ENCOUNTER 2019-08-09 10:31 | Emergency (ER) | payer BC ==
[2019-08-09 10:35] VITALS: BP 125/83
[2019-08-09] MEDS ORDERED: ONDANSETRON 4 MG TAB.RAPDIS PO ONE (10:52)
--- NOTE | 2019-08-09 10:53 | ER Document Report ---
ED Medical Screen (RME) - General Chief Complaint: Flank Pain Stated Complaint: RIGHT FLANK PAIN Time Seen by Provider: 08/09/19 10:47 Mode of Arrival: Medic Information source: Patient Notes: 29-year-old female presented to ED for complaint of right upper abdominal/flank pain started this morning. She states she said to 3 vomiting. She has had no diarrhea. She is alert oriented respirations regular and unlabored speaking in full sentences. She states she has had a hysterectomy. She does smoke half pack does not drink or do drugs. She is alert oriented respirations regular and unlabored speaking in full sentences. She states she has had ibuprofen about 2 hours ago. I have greeted and performed a rapid initial assessment of this patient. A comprehensive ED assessment and evaluation of the patient, analysis of test results and completion of medical decision making process will be conducted by an additional ED providers. TRAVEL OUTSIDE OF THE [place] IN LAST 30 DAYS: No - Related Data Allergies/Adverse Reactions: ciprofloxacin [From Cipro] Allergy (Verified 08/09/19 10:50) Penicillins Allergy (Verified 01/03/18 10:51) Generalized Itching, HIVES Past Medical History - Past Medical History Cardiac Medical History: Denies: Hx Coronary Artery Disease, Hx Heart Attack, Hx Hypertension, Hx Heart Murmur Pulmonary Medical History: Denies: Hx Asthma, Hx Bronchitis, Hx COPD, Hx Pneumonia Neurological Medical History: Denies: Hx Cerebrovascular Accident, Hx Seizures Endocrine Medical History: Reports: Hx Diabetes Mellitus Type 2 - gestational. Denies: Hx Hyperthyroidism, Hx Hypothyroidism Renal/ Medical History: Reports: Hx Kidney Stones - during , Hx Ovarian Cysts. Denies: Hx Peritoneal Dialysis, Hx Pelvic Inflammatory Disease Malignancy Medical History: Denies: Hx Breast Cancer, Hx Cervical Cancer, Hx Ovarian Cancer GI Medical History: Reports: Hx Gastroesophageal Reflux Disease - during pregnanct. Denies: Hx Hepatitis, Hx Hiatal Hernia, Hx Ulcer Musculoskeltal Medical History: Denies Hx Arthritis, Denies Hx Fibromyalgia Psychiatric Medical History: Denies: Hx Bipolar Disorder, Hx Depression, Hx Post Traumatic Stress Disorder, Hx Schizophrenia Traumatic Medical History: Denies: Hx Fractures Infectious Medical History: Denies: Hx Hepatitis, Hx HIV Past Surgical History: Reports: Hx Section, Hx Gynecologic Surgery - lap for endometriosis/ d&c, Hx Orthopedic Surgery - bilateral knee surgery, right shoulder x2. Denies: Hx Mastectomy, Hx Open Heart Surgery, Hx Pacemaker - Immunizations Immunizations up to date: Yes Hx Diphtheria, Pertussis, Tetanus Vaccination: Yes - 10/14/13 Physical Exam - Vital signs Vitals: Temp Pulse Resp BP Pulse Ox 97.2 F 90 18 125/83 99 08/09/19 10:33 08/09/19 10:33 08/09/19 10:33 08/09/19 10:33 08/09/19 10:33 Course - Vital Signs Vital signs: Temp Pulse Resp BP Pulse Ox 97.2 F 90 18 125/83 99 08/09/19 10:33 08/09/19 10:33 08/09/19 10:33 08/09/19 10:33 08/09/19 10:33
[2019-08-09] MEDS ORDERED: MORPHINE SULFATE 10 MG/ML INJ ONE (12:21)
== END 2019-08-09 12:01 | disposition left against medical advice (07) ==
LOC: ER 10:31
DX: R10.9 Unspecified abdominal pain (principal); R10.11 Right upper quadrant pain; R11.10 Vomiting, unspecified; Z90.710 Acquired absence of both cervix and uterus; Z87.442 Personal history of urinary calculi; Z87.19 Personal history of other diseases of the digestive system; Z88.0 Allergy status to penicillin; Z88.1 Allergy status to other antibiotic agents; Z53.20 Procedure and treatment not carried out because of patient's decision for unspecified reasons
CPT/HCPCS: 99281